=== PATIENT | male | born 1960 | race Caucasian/White ===

== ENCOUNTER 2018-03-16 15:25 | Emergency (ER) | payer OTHER, SELFPAY ==
[2018-03-16 15:25] VITALS: BP 123/83; PULSE 72; RESP 24; TEMP 36.6; O2SAT 95; BMI 29.0
--- NOTE | 2018-03-16 16:20 | ED.DCSUM_ITS ---
- ER Visit Summary Date of Service: 03/16/18 Chief Complaint: [] Left index finger laceration History of Present Illness: The patient is a 57 M [] a metal fire pit the metal slipped and he suffered a injury to the left middle finger distally, no blunt injury rather a slicing injury. No other complaints he is right-hand dominant believes his tetanus made to be up-to-date Physical Examination: [] The left hand there is a 3 cm curvilinear laceration to distal portion of the left index finger, it does involve part of the pad of the finger there is no foreign bodies that are apparent. The IP joint PIP joint and MCP joint fully intact nail is intact he denies any trauma to the bone he does not wish to have an x-ray done there is no signs of foreign body Test Results: [] Emergency Department Course and Treatment: [] Was sterilely prepped irrigated cleansed digital block and then closed with nylon instructed on wound care the need to follow-up in the possible occult injury sutures out in 7-10 days he is referred to Dr. tenisha Hebert for follow-up Treatment Plan: [] Disposition: [] Home stable Impression: [] 3 Centimeter left index finger laceration This note was generated with [employer] dictation software. It may contain incorrect words, spelling, and punctuation that were not noted in review of the chart prior to signing ED Disposition - Plan for ED Patient: Chief Complaint: Laceration Instructions: ED Laceration Hand Referrals: Franco Perez MD [Primary Care Provider] -
--- NOTE | 2018-03-16 17:29 | ED.DEP ---
ED Disposition - Plan for ED Patient: Chief Complaint: Laceration Instructions: ED Laceration Hand Referrals: Franco Perez MD [Primary Care Provider] - Aquilino Rausch MD [STAFF PHYSICIAN] -
[2018-03-16 17:53] VITALS: BP 118/74; PULSE 78; RESP 15; O2SAT 97
== END 2018-03-16 17:58 | disposition home or self-care (01) ==
PROVIDERS: Emergency Provider Emergency Medicine; Family Provider Internal Medicine; PCP Internal Medicine
DX: S61.211A Laceration without foreign body of left index finger without damage to nail, initial encounter (principal); W26.8XXA Contact with other sharp object(s), not elsewhere classified, initial encounter; Y93.9 Activity, unspecified; Y92.9 Unspecified place or not applicable
CPT/HCPCS: 12002; 99284

== ENCOUNTER 2018-11-17 15:27 | Observation (INO) | payer OTHER, SELFPAY ==
[2018-11-17] VITALS (9 sets, daily range): BP systolic 123–132; BP diastolic 73–88; PULSE 52–68; RESP 14–18; TEMP 36.7–36.9; O2SAT 94–97; BMI 30.6; BMI 28.7
--- NOTE | 2018-11-17 15:36 | EKG12_ITS ---
Test Reason : CP Blood Pressure : / mmHG Vent. Rate : 061 BPM Atrial Rate : 061 BPM P-R Int : 156 ms QRS Dur : 086 ms QT Int : 434 ms P-R-T Axes : 045 012 028 degrees QTc Int : 436 ms Normal sinus rhythm Normal ECG Confirmed by MICHELLE RICO MD ([id number]), desk editor KATHIA MAK ([id number]) on 11/21/2018 4:43:07 PM Referred By: STEWART Confirmed By:MICHELLE RICO MD
[2018-11-17] MEDS: Aspirin 81 MG TAB.CHEW 324 MG PO (15:40)
--- NOTE | 2018-11-17 15:40 | RAD_ITS ---
STUDY: X-RAY CHEST REASON FOR EXAM: Male, 58 years old. Chest pain. TECHNIQUE: Single AP portable upright view of the chest. COMPARISON: Portable AP erect chest x-ray July 26, 2014. FINDINGS: Small transverse linear density in the inferolateral left base consistent with focal scarring or subsegmental atelectasis. The lungs are overall clear and more fully expanded today. There is no demonstrated pleural abnormality. Normal size heart. Normal mediastinum and sheri. Normal visualized pulmonary arteries. Normal visualized aortic arch and descending thoracic aorta. There are stable mild degenerative changes of the visualized thoracic spine. 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 There is no demonstrated abnormality of the visualized soft tissue structures of the upper abdomen. RAD/Chest 1 View (Portable) IMPRESSION: Moderate focal scarring in the inferolateral left lung base. No consolidating infiltrate or CHF. Electronically Signed: Jamel Ward MD at 16:30 EST , Service support ,
[2018-11-17 15:47] LABS: Absolute Lymphocyte Count 2.04 X10^3/ul (0.83-4.51); Absolute Neutrophil Count 4.2 X10^3/uL (2.0-7.7); Basophil# 0.01 X10^3/uL; Basophil% 0.1 % (0-1); Eosinophils% 1.4 % (0-5); Hematocrit 43.1 % (40-54); Hemoglobin 14.3 g/dl (13.0-16.5); Lymphocyte # 2.04 X10^3/ul (4.0); Lymphocyte % 28.9 % (19-41); Mean Corp Hgb Conc 33.2 g/gl (32-36); Mean Corpuscular Hgb 29.2 pg (27.0-32.0); Mean Corpuscular Volume 88.1 fL (80-94); Mean Platelet Vol. 11.2 fl (6.2-12.0); Monocyte# 0.71 X10^3/uL; Monocyte% 10.1 % (0-10); Neutrophil # 4.18 X10^3/uL (2.7-7.7); Neutrophil % 59.4 % (47-70); Platelet Count 202 K/mm3 (150-450); RBC Distribution Width CV 13.8 % (11.6-14.6); RBC Distribution Width SD 44.4 fl (35.1-43.9); Red Blood Count 4.89 M/mm3 (4.6-6.2); White Blood Count 7.1 K/mm3 (4.4-11.0)
--- NOTE | 2018-11-17 15:47 | ED.VISSUMM ---
- ER Visit Summary Date of Service: 11/17/18 Chief Complaint: Chest pain History of Present Illness: The patient is a 58 M history of prior TX with CAD and 2 cardiac stents he believes it was replaced in June 2013. Patient states he has had chest pain since last evening. Associated nausea and diaphoresis. Mild dyspnea. This was not associated with exertion today. States the pain is midsternal and goes to his throat and his left shoulder and back. Patient stats at its worse the he was 9 out of 10. Currently is 2 out of 10. No history of DVT or PE. No risk factors. No leg pain or swelling. No pleuritic pain. No hemoptysis. Physical Examination: 58-year-old male no acute distress. Vital signs are stable. Afebrile. Pulse ox 95% lateral extreme no hypoxia. HEENT exam unremarkable. Neck nontender no lymphadenopathy. Lungs clear to auscultation bilaterally. Heart regular rate and rhythm no murmur. Abdomen soft nontender. No pedal bowel sounds no peritoneal signs. Extremities moves all 4. Calves nontender. Equal symmetrical radial pulses. No edema. Dorsi plantar flexion intact. Back and chest are nontender. Neurologically awake alert no focal motor deficits. Test Results: CBC normal. Hemoglobin 14. Chemistries normal. Troponin normal. EKG sinus rhythm rate of 61 no acute signs of TX or ischemia. Chest x-ray chronic scar tissue otherwise unremarkable. Emergency Department Course and Treatment: Cardiac workup. P.o. aspirin. Treatment Plan: Repeat exam patient is doing well at 1740. We went over all his test results. I very spoken to the hospitalist who will admit him to the PCU for further evaluation and workup. Disposition: Admission Impression: Acute chest pain of uncertain etiology History of CAD with 2 cardiac stents and prior TX This note was generated with [employer] dictation software. It may contain incorrect words, spelling, and punctuation that were not noted in review of the chart prior to signing ED Disposition - Plan for ED Patient: Referrals: Franco Perez MD [Primary Care Provider] -
[2018-11-17 15:48] LABS: POSITIVE COUNT NO; POSITIVE DIFFERENTIAL NO; POSITIVE MORPHOLOGY NO
--- NOTE | 2018-11-17 16:00 | ED.DCSUM_ITS ---
- ER Visit Summary Date of Service: 11/17/18 Chief Complaint: Chest pain History of Present Illness: The patient is a 58 M history of prior [place] with CAD and 2 cardiac stents he believes it was replaced in June 2013. Patient states he has had chest pain since last evening. Associated nausea and diaphoresis. Mild dyspnea. This was not associated with exertion today. States the pain is midsternal and goes to his throat and his left shoulder and back. Patient stats at its worse the he was 9 out of 10. Currently is 2 out of 10. No history of DVT or PE. No risk factors. No leg pain or swelling. No pleuritic pain. No hemoptysis. Physical Examination: 58-year-old male no acute distress. Vital signs are stable. Afebrile. Pulse ox 95% lateral extreme no hypoxia. HEENT exam unremarkable. Neck nontender no lymphadenopathy. Lungs clear to auscultation bilaterally. Heart regular rate and rhythm no murmur. Abdomen soft nontender. No pedal bowel sounds no peritoneal signs. Extremities moves all 4. Calves nontender. Equal symmetrical radial pulses. No edema. Dorsi plantar flexion intact. Back and chest are nontender. Neurologically awake alert no focal motor deficits. Test Results: CBC normal. Hemoglobin 14. Chemistries normal. Troponin normal. EKG sinus rhythm rate of 61 no acute signs of WI or ischemia. Chest x-ray chronic scar tissue otherwise unremarkable. Emergency Department Course and Treatment: Cardiac workup. P.o. aspirin. Treatment Plan: Repeat exam patient is doing well at 1740. We went over all his test results. I very spoken to the hospitalist who will admit him to the PCU for further evaluation and workup. Disposition: Admission Impression: Acute chest pain of uncertain etiology History of CAD with 2 cardiac stents and prior [place] This note was generated with [employer] dictation software. It may contain incorrect words, spelling, and punctuation that were not noted in review of the chart p rior to signing ED Disposition - Plan for ED Patient: Referrals: Franco Perez MD [Primary Care Provider] -
[2018-11-17 16:02] LABS: Anion Gap 10 (5-15); BUN 16 mg/dL (7-18); BUN/Creat Ratio 13.6 RATIO (10-20); Chloride 104 mmol/L (98-107); Creatinine, Serum 1.18 mg/dL (0.70-1.30); EST Glomerular Filtration Rate 67 mL/min (>60); Est Glom Filt Rate - Afr Amer 81 mL/min (>60); Estimated Creatinine Clearance 62.24 ml/min; Glucose 95 mg/dL (74-106); Potassium 4.4 mmol/L (3.5-5.1); Sodium Level 142 mmol/L (136-145)
--- NOTE | 2018-11-17 18:18 | HP.PCM_ITS ---
<Ashwin Benavidez - Last Filed: 11/17/18 18:18> Problem List (1) Chest pain Status: Acute (2) CAD (coronary artery disease) Status: Chronic (3) GERD (gastroesophageal reflux disease) Status: Chronic History of Present Illness Date of Admission: 11/17/18 Chief Complaint: chest pain The patient is a 58 year old M with a pmhx of CAD with 2 prior stents, pt of Dr. Zuñiga, also with hx of GERD, who presents to the ER with c/o chest pain. This began last night while sitting. He describes it as a 4/10 midsternal pressure radiating into the left arm and back. He had associated nausea and dizziness. He did not have SOB or diaphoresis. The pain is constant. No aggravating or alleviating factors. In the ER he has a negative EKG, negative trop, and neg ative CXR. He does continue to smoke 1/2 ppd. [] Past Medical History Past Medical History (Chronic Problems): Chronic Problems CAD (coronary artery disease) (Chronic) GERD (gastroesophageal reflux disease) (Chronic) Allergies Sulfa (Sulfonamide Antibiotics) Allergy (Verified 03/16/18 15:27) Unknown Home Medications: Ambulatory Orders Medication Instructions Recorded Atorvastatin Calcium [Lipitor] 80 mg PO QHS 03/16/18 Levothyroxine [Synthroid] 137 mcg PO MOTUWETHFR 03/16/18 Metoprolol Tartrate [Lopressor 25 mg PO BID 03/16/18 (Beta Hayder)] Pantoprazole Sodium [Protonix] 40 mg PO DAILY 03/16/18 Tamsulosin HCl [Flomax] 0.4 mg PO QHS 03/16/18 Zolpidem Tartrate [Ambien] 10 mg PO QHS PRN PRN 03/16/18 buPROPion SR [Wellbutrin SR (150mg 150 mg PO BID 03/16/18 tablets)] Aspirin E.C. [Ecotrin] 325 mg PO DAILY@0800 11/17/18 Cyanocobalamin (Vitamin B-12) 2,000 mcg PO DAILY 11/17/18 [Vitamin B-12] [place]-3 Fatty Acids/Fish Oil [Fish 1,000 mg PO DAILY 11/17/18 Oil 1,000 mg Capsule] Surgical History: cataract, herniorrhaphy Psychiatric History: No pertinent psych hx Lives: Spouse/ Significant Other Smoking Status: Current some day smoker Tobacco Use: Cigarettes Alcohol: None Drugs: None - *Family History Maternal History Items: Diabetes Paternal History Items: Heart Disease Review of Systems Constitutional: Denies: Chills, Fever, Weight Change HEENT: Denies: Head Aches, Sinus Congestion, Sinus Drainage Cardiovascular: Reports: Chest Pain, Chest Pressure, Light Headedness. Denies: Edema, Heaviness, Orthopnea, Palpitations, Paroxysmal Noc. Dyspnea Respiratory: Denies: Cough, Shortness of breath at rest, Sputum production Gastrointestinal: Denies: Abdominal Pain, Nausea, Vomiting Genitourinary: Denies: Dysuria Musculoskeletal: Denies: Joint Pain, Joint Tenderness Skin: Denies: Rash, Wounds Neurological: Denies: Numbness, Tingling, Focal weakness Psychiatric: Denies: Anxiety, Depression, Homicidal Ideations, Suicidal Ideations Hematologic/ Lymphatic: Denies: Easy Bruising, Easy Bleeding VTE Information - Inpt Only VTE Present on Admission: No VTE Mechan Device Prophylaxis: None VTE Pharm Prophylaxis ordered?: Yes Patient Problems: Active and Suspected Problems Chest pain (Acute) - Physical Exam General: Alert, Oriented x3, Cooperative HEENT: Atraumatic, PERRLA, EOMI, Normocephalic Neck: Supple, No JVD, Negative Carotid Bruits Lungs: Clear to auscultation, Normal air movement Cardiovascular: Regular rate, No murmurs Abdomen: Bowel Sounds Present, Soft, Non Tender Extremities: No edema, Capillary Refill Less than 3 Seconds Skin: No rashes, No breakdown Musculoskeletal: No Tenderness to Palpation of Joints or Extremities Neurological: Cranial nerves II-XII grossly intact Psych/Mental Status: Normal Affect, Appropriate Vital Signs Temp Pulse Resp BP Pulse Ox 98.1 F 57 L 16 130/75 H 94 11/17/18 15:28 11/17/18 16:28 11/17/18 16:28 11/17/18 16:28 11/17/18 16:28 Oxygen Delivery Method Room Air Weight: 195 lb 8.8 oz Body Mass Index (BMI) 30.6 Laboratory Tests Past 24 Hrs 11/17/18 11/17/18 15:35 15:35 WBC 7.1 RBC 4.89 Hgb 14.3 Hct 43.1 MCV 88.1 MCH 29.2 MCHC 33.2 RDW 13.8 RDW Differential 44.4 H Plt Count 202 MPV 11.2 Immature Gran % (Auto) 0.100 Neut % (Auto) 59.4 Lymph % (Auto) 28.9 [place] % (Auto) 10.1 H Eos % (Auto) 1.4 Baso % (Auto) 0.1 Absolute Neuts (auto) 4.2 Absolute Lymphs (auto) 2.04 Total Counted Not Reportable Sodium 142 Potassium 4.4 Chloride 104 Carbon Dioxide 28.0 Anion Gap 10 BUN 16 Creatinine 1.18 Estim Creat Clear Calc 62.24 Est GFR (MDRD) Af Amer 81 Est GFR (MDRD) Non-Af 67 BUN/Creatinine Ratio 13.6 Glucose 95 Calcium 9.0 Troponin I < 0.015 Assessment/Plan All Active Problems Chest pain (Acute) 1. Chest pain - hx CAD with 2 prior stents. Still smokes 1/2 ppd. Negative EKG, negative trop, neg CXR. Admit to PCU on tele. Cycle enzymes, repeat AM EKG, Stress test in AM. Last stress negative 2 years ago. On asa/statin/beta hayder. 2. GERD - ppi 3. Depression - continue home meds 4. BPH - flomax 5. Hypothyroidism - synthroid. DVT ppx: lovenox This patient was seen by Ashwin Benavidez PA-C under the supervision of Dr. Masterson. <Hood Masterson F - Last Filed: 11/17/18 19:34> History of Present Illness The patient is a 58 year old M [] Past Medical History Allergies Sulfa (Sulfonamide Antibiotics) Allergy (Verified 03/16/18 15:27) Unknown - Physical Exam Vital Signs Temp Pulse Resp BP Pulse Ox 98.1 F 60 14 123/88 H 94 11/17/18 18:53 11/17/18 18:53 11/17/18 18:53 11/17/18 18:53 11/17/18 18:53 Oxygen Delivery Method Room Air Weight: 183 lb 6.793 oz Body Mass Index (BMI) 28.7 Laboratory Tests Past 24 Hrs 11/17/18 11/17/18 11/17/18 15:35 15:35 18:53 WBC 7.1 RBC 4.89 Hgb 14.3 Hct 43.1 MCV 88.1 MCH 29.2 MCHC 33.2 RDW 13.8 RDW Differential 44.4 H Plt Count 202 MPV 11.2 Immature Gran % (Auto) 0.100 Neut % (Auto) 59.4 Lymph % (Auto) 28.9 Sunflower % (Auto) 10.1 H Eos % (Auto) 1.4 Baso % (Auto) 0.1 Absolute Neuts (auto) 4.2 Absolute Lymphs (auto) 2.04 Total Counted Not Reportable Sodium 142 Potassium 4.4 Chloride 104 Carbon Dioxide 28.0 Anion Gap 10 BUN 16 Creatinine 1.18 Estim Creat Clear Calc 62.24 Est GFR (MDRD) Af Amer 81 Est GFR (MDRD) Non-Af 67 BUN/Creatinine Ratio 13.6 Glucose 95 Calcium 9.0 Troponin I < 0.015 Pending Code Visit Addendum: Dr. Masetrson I personally examined the patient and reviewed the chart. I agree with the above. 58-year-old male with a history of current tobacco use as well as a history of coronary artery disease status post stents x2 on aspirin and Lipitor, presenting with chest pain that started yesterday evening. In the ER he had a normal troponin and a normal EKG. He states that initially the pain was going down his arm however that has resolved though he continues to have mild chest pressure. He did have a stress test 2 years ago which was negative therefore will obtain serial troponins as well as a stress test in the morning. He cannot do a treadmill stress test because he has right knee pain. OBSV E&M: [id number] Initial observation care L3
--- NOTE | 2018-11-17 19:20 | EKG12_ITS ---
Test Reason : CP ADMISSION Blood Pressure : / mmHG Vent. Rate : 054 BPM Atrial Rate : 054 BPM P-R Int : 172 ms QRS Dur : 092 ms QT Int : 456 ms P-R-T Axes : 049 019 038 degrees QTc Int : 432 ms Sinus bradycardia Otherwise normal ECG Confirmed by NATIVIDAD KING, DEDRA ([id number]), fan mail editor KATHIA MAK ([id number]) on 11/22/2018 10:57:34 AM Referred By: CARLOS Confirmed By:DEDRA HENSON MD
[2018-11-17] MEDS: Atorvastatin Calcium 80 MG Tablet PO (21:20)
[2018-11-17] MEDS: Metoprolol Tartrate 25 MG Tablet PO (21:20)
[2018-11-17] MEDS: Tamsulosin HCl 0.4 MG Capsule PO (21:20)
[2018-11-17] MEDS: buPROPion (SR) 150 MG Tablet.SA PO (21:20)
[2018-11-18] VITALS (12 sets, daily range): BP systolic 101–116; BP diastolic 64–76; PULSE 53–69; RESP 16–18; TEMP 36.2–36.6; O2SAT 92–97
--- NOTE | 2018-11-18 05:55 | EKG12_ITS ---
Test Reason : AM EKG Blood Pressure : / mmHG Vent. Rate : 062 BPM Atrial Rate : 062 BPM P-R Int : 180 ms QRS Dur : 082 ms QT Int : 430 ms P-R-T Axes : 048 026 047 degrees QTc Int : 436 ms Normal sinus rhythm Normal ECG Confirmed by NATIVIDAD KING, DEDRA ([id number]), assistant film editor KATHIA MAK ([id number]) on 11/22/2018 10:56:27 AM Referred By: CARLOS Confirmed By:DEDRA HENSON MD
[2018-11-18] MEDS: 0.9% NaCl Peripheral Flush Adult/Peds IV (06:31)
[2018-11-18] MEDS: Aspirin E.C. 325 MG Tablet PO (06:31)
[2018-11-18 07:02] LABS: Absolute Lymphocyte Count 2.09 X10^3/ul (0.83-4.51); Absolute Neutrophil Count 4.4 X10^3/uL (2.0-7.7); Basophil# 0.03 X10^3/uL; Basophil% 0.4 % (0-1); Eosinophil# 0.16 X10^3/uL; Eosinophils% 2.2 % (0-5); Hematocrit 43.2 % (40-54); Hemoglobin 14.2 g/dl (13.0-16.5); Lymphocyte # 2.09 X10^3/ul (4.0); Lymphocyte % 28.2 % (19-41); Mean Corp Hgb Conc 32.9 g/gl (32-36); Mean Corpuscular Hgb 29.2 pg (27.0-32.0); Mean Corpuscular Volume 88.9 fL (80-94); Mean Platelet Vol. 11.3 fl (6.2-12.0); Monocyte# 0.76 X10^3/uL; Monocyte% 10.3 % (0-10); Neutrophil # 4.36 X10^3/uL (2.7-7.7); Neutrophil % 58.8 % (47-70); Platelet Count 201 K/mm3 (150-450); RBC Distribution Width CV 13.7 % (11.6-14.6); RBC Distribution Width SD 44.2 fl (35.1-43.9); Red Blood Count 4.86 M/mm3 (4.6-6.2); White Blood Count 7.4 K/mm3 (4.4-11.0)
[2018-11-18 07:04] LABS: POSITIVE COUNT NO; POSITIVE DIFFERENTIAL NO; POSITIVE MORPHOLOGY NO
[2018-11-18 07:08] LABS: Prothrombin Time (Protime)PT. 12.9 SECONDS (11.7-14.9)
[2018-11-18 07:09] LABS: Partial Thromboplast Time 27.5 Seconds (24.1-36.2)
[2018-11-18 07:17] LABS: Anion Gap 7 (5-15); BUN 22 mg/dL (7-18); BUN/Creat Ratio 20.4 RATIO (10-20); Calcium,Total 8.7 mg/dL (8.5-10.1); Chloride 107 mmol/L (98-107); Creatinine, Serum 1.08 mg/dL (0.70-1.30); EST Glomerular Filtration Rate 74 mL/min (>60); Est Glom Filt Rate - Afr Amer 90 mL/min (>60); Glucose 91 mg/dL (74-106); Potassium 4.3 mmol/L (3.5-5.1); Sodium Level 143 mmol/L (136-145)
--- NOTE | 2018-11-18 11:58 | DCINST_ITS ---
- Discharge Diagnoses Current Active Problems: Current Active and Chronic Problems Chest pain (Acute) CAD (coronary artery disease) (Chronic) GERD (gastroesophageal reflux disease) (Chronic) You will use the following diet at home:: No restrictions Your food should be the consistency of: Regular Your liquids should be the consistency of: Regular/Thin Discharge Activity: Return to Normal Activity Weight Bearing Status: Full weight bearing Allergies/Adverse Reactions: Allergies Sulfa (Sulfonamide Antibiotics) Allergy (Verified 03/16/18 15:27) Unknown Medications to take at Discharge Atorvastatin Calcium [Lipitor] 80 mg PO QHS 03/16/18 Levothyroxine [Synthroid] 137 mcg PO MOTUWETHFR 03/16/18 Metoprolol Tartrate [Lopressor (beta hayder)] 25 mg PO BID 03/16/18 Pantoprazole Sodium [Protonix] 40 mg PO DAILY 03/16/18 Tamsulosin HCl [Flomax] 0.4 mg PO QHS 03/16/18 Zolpidem Tartrate [Ambien] 10 mg PO QHS PRN PRN 03/16/18 buPROPion SR [Wellbutrin SR (150mg tablets)] 150 mg PO BID 03/16/18 Aspirin E.C. [Ecotrin] 325 mg PO DAILY@0800 11/17/18 Cyanocobalamin (Vitamin B-12) [Vitamin B-12] 2,000 mcg PO DAILY 11/17/18 [place]-3 Fatty Acids/Fish Oil [Fish Oil 1,000 mg Capsule] 1,000 mg PO DAILY 11/17/18 Primary Care Physician: Franco Perez MD [Primary Care Provider] - Please follow up with your Primary Care Physician in: in 3 weeks Test Results: Test results from this visit will be discussed in further detail at your follow- up appointment, if applicable. Please Follow Up With: Brady Zuñiga MD When: in 2 weeks
[2018-11-18] MEDS: buPROPion (SR) 150 MG Tablet.SA PO ×2 (12:07→22:45)
[2018-11-18] MEDS: Pantoprazole Sodium 40 MG Tablet PO (12:07)
[2018-11-18] MEDS: Metoprolol Tartrate 25 MG Tablet PO ×2 (12:07→22:45)
--- NOTE | 2018-11-18 13:14 | STRESSREP ---
Stress Test Report Date: 11-18-2018 Procedure: Pharmacologic stress nuclear imaging study Indications: Chest pain; CAD; status post PCI Consent: Per the patient Procedure: The patient underwent pharmacologic (Regadenoson) evaluation with a peak heart rate of 105 beats per minute (65% predicted maximal heart rate) and a peak blood pressure of 112/62 mmHg. The baseline ECG demonstrated Sinus bradycardia . The peak pharmacologic ECG demonstrated a nonspecific T-wave abnormality with spontaneous resolution to baseline . There were no cardiac dysrhythmias pretest, during pharmacologic infusion, or recovery. The patient noted chest/neck discomfort during pharmacologic infusion with spontaneous resolution to baseline in recovery . The examination was discontinued secondary to completion of protocol. Impression: 1. Pharmacologic (Regadenoson) evaluation 2. Peak pharmacologic ECG with a nonspecific T-wave abnormality with spontaneous resolution to baseline 3. There were no cardiac dysrhythmias pretest, during pharmacologic infusion, or recovery. 4. Nuclear images pending Myocardial perfusion imaging study: Technique: The patient was injected with 12.0 millicuries of technetium 99m Cardiolite and subsequently rest SPECT Cardiolite nuclear imaging was obtained in the horizontal long, vertical long, and short axis views. The patient underwent pharmacologic (Regadenoson) evaluation with a peak heart rate of 105 beats per minute (65 % percent predicted maximal heart rate) and a peak blood pressure of 112/62 mmHg. The patient was injected with 36.0 millicuries of technetium 99m Cardiolite and subsequently stress SPECT Cardiolite nuclear imaging was obtained in the horizontal long, vertical long, and short axis views. A gated Cardiolite study at peak stress was obtained. Interpretation: Rest and stress SPECT Cardiolite nuclear imaging status post realignment, normalization, and attenuation correction demonstrate Relative uniform tracer uptake at rest. Status post stress there is notation of subtle diminished tracer uptake in portions of the distal anterior and anteroapical segments. . There is end systolic thickening and brightening. The gated Cardiolite study demonstrates myocardial thickening and inward wall motion. The reported LVEF is 62 %. Impression: 1. Rest and stress expect Cardiolite nuclear imaging demonstrate myocardial perfusion changes concerning for an area of stress induced myocardial ischemia in portions of the distal anteroseptum anterior apical segments, however, an element of shifting soft tissue attenuation/artifact cannot necessarily be excluded . 2. The gated Cardiolite study reports an LVEF of 62 %. This note was generated with Dragon dictation software. It may contain incorrect words, spelling, and punctuation that were not noted in checking the note before signing.
--- NOTE | 2018-11-18 14:19 | PCM.PROGNOTE ---
Patient Problems: Active and Suspected Problems Chest pain (Acute) Subjective: Ongoing chest pain. 2/10 at rest, 4/10 during stress test. Described as ongoing pressure radiating into back neck and left axillae. - Physical Exam General: Alert, Oriented x3, Cooperative HEENT: Atraumatic, PERRLA, EOMI, Normocephalic Neck: Supple, No JVD, Negative Carotid Bruits Lungs: Clear to auscultation, Normal air movement Cardiovascular: Regular rate, No murmurs Abdomen: Bowel Sounds Present, Soft, Non Tender Extremities: No edema, Capillary Refill Less than 3 Seconds Skin: No rashes, No breakdown Musculoskeletal: No Tenderness to Palpation of Joints or Extremities Neurological: Cranial nerves II-XII grossly intact Psych/Mental Status: Normal Affect, Appropriate Vital Signs Temp Pulse Resp BP Pulse Ox 97.7 F L 62 16 112/65 97 11/18/18 11:44 11/18/18 12:07 11/18/18 11:44 11/18/18 11:44 11/18/18 11:44 Oxygen Flow Rate (L/min) 2 Oxygen Delivery Method Room Air Weight: 183 lb 6.793 oz Body Mass Index (BMI) 28.7 Intake and Output for Last 24 Hours 11/16/18 11/17/18 11/18/18 23:59 23:59 23:59 Intake Total 300 / 300 240 / 240 Balance 300 / 300 240 / 240 Laboratory Tests Past 24 Hrs 11/17/18 11/17/18 11/17/18 15:35 15:35 18:53 WBC 7.1 RBC 4.89 Hgb 14.3 Hct 43.1 MCV 88.1 MCH 29.2 MCHC 33.2 RDW 13.8 RDW Differential 44.4 H Plt Count 202 MPV 11.2 Immature Gran % (Auto) 0.100 Neut % (Auto) 59.4 Lymph % (Auto) 28.9 [place] % (Auto) 10.1 H Eos % (Auto) 1.4 Baso % (Auto) 0.1 Absolute Neuts (auto) 4.2 Absolute Lymphs (auto) 2.04 Total Counted Not Reportable PT INR APTT Sodium 142 Potassium 4.4 Chloride 104 Carbon Dioxide 28.0 Anion Gap 10 BUN 16 Creatinine 1.18 Estim Creat Clear Calc 62.24 Est GFR (MDRD) Af Amer 81 Est GFR (MDRD) Non-Af 67 BUN/Creatinine Ratio 13.6 Glucose 95 Calcium 9.0 Troponin I < 0.015 < 0.015 11/17/18 11/18/18 11/18/18 21:12 05:46 05:46 WBC 7.4 RBC 4.86 Hgb 14.2 Hct 43.2 MCV 88.9 MCH 29.2 MCHC 32.9 RDW 13.7 RDW Differential 44.2 H Plt Count 201 MPV 11.3 Immature Gran % (Auto) 0.100 Neut % (Auto) 58.8 Lymph % (Auto) 28.2 [place] % (Auto) 10.3 H Eos % (Auto) 2.2 Baso % (Auto) 0.4 Absolute Neuts (auto) 4.4 Absolute Lymphs (auto) 2.09 Total Counted Not Reportable PT INR APTT Sodium 143 Potassium 4.3 Chloride 107 Carbon Dioxide 29.0 Anion Gap 7 BUN 22 H Creatinine 1.08 Estim Creat Clear Calc 68.00 Est GFR (MDRD) Af Amer 90 Est GFR (MDRD) Non-Af 74 BUN/Creatinine Ratio 20.4 H Glucose 91 Calcium 8.7 Troponin I < 0.015 11/18/18 05:46 WBC RBC Hgb Hct MCV MCH MCHC RDW RDW Differential Plt Count MPV Immature Gran % (Auto) Neut % (Auto) Lymph % (Auto) [place] % (Auto) Eos % (Auto) Baso % (Auto) Absolute Neuts (auto) Absolute Lymphs (auto) Total Counted PT 12.9 INR 1.0 APTT 27.5 Sodium Potassium Chloride Carbon Dioxide Anion Gap BUN Creatinine Estim Creat Clear Calc Est GFR (MDRD) Af Amer Est GFR (MDRD) Non-Af BUN/Creatinine Ratio Glucose Calcium Troponin I Medical Necessity - Tobacco Use Smoking Status: Current some day smoker Tobacco Use: Cigarettes Assessment/Plan All Active Problems Chest pain (Acute) 1. Chest pain - hx CAD with 2 prior stents. Still smokes 1/2 ppd. tele ok, EKG unchanged, trop neg. Stress test was abnormal. Will stay here for possible heart cath on tuesday. Start plavix Consult [place] Lovenox BID prn nitro, morphine. on beta hayder BP well controlled. 2. GERD - ppi 3. Depression - continue home meds 4. BPH - flomax 5. Hypothyroidism - synthroid. 6. Nicotine abuse - patch if desired. DVT ppx: therapeutic lovenox. This patient was seen by Ashwin Benavidez PA-C under the supervision of Dr. Cordero.
[2018-11-18] MEDS: Enoxaparin 40 MG/0.4 ML Syringe SC (14:23)
--- NOTE | 2018-11-18 16:15 | PCM.CONS.C ---
Problem List (1) Chest pain Status: Acute (2) CAD (coronary artery disease) Status: Chronic Qualifiers: Coronary Disease-Associated Artery/Lesion type: [place] artery (3) S/P PTCA (percutaneous transluminal coronary angioplasty) Status: Chronic (4) Abnormal stress test Status: Acute (5) GERD (gastroesophageal reflux disease) Status: Chronic Reason for Consult Date of Consultation: 11/18/18 History of Present Illness: The patient is a 58 year old White male who was referred for evaluation of chest discomfort, a history of CAD status post PCI, and an abnormal stress test superimposed upon history of GERD. He states that several years ago he was evaluated for concerns of chest discomfort, was found to have a heart attack , was transferred to [facility] where he underwent diagnostic cardiac catheterization and received PCI. He does not recall the details. However he states he presented on a Tuesday and was back to work the following Tuesday. He states since that time has been followed by [facility] locally. He states he has had to outpatient stress tests at their facility which were reportedly negative. He notes that recently he has been having recurrent chest discomfort and neck discomfort left upper extremity discomfort as well as a sensation of nausea. He has been concerned as to some of the symptoms are similar to some of the symptoms he may of hand during his original event. 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 He states he was told at that time that he appears pale and diaphoretic. He was referred to the emergency department for further evaluation. He was evaluated and placed in the hospital for further evaluation and care. He states overall he is felt better. He has undergone cardiac enzymes which were negative. He has had ECGs which demonstrated sinus rhythm with no acute changes. He underwent a pharmacologic stress nuclear imaging study earlier this day which demonstrated at infusion nonspecific T-wave changes and with respect to his myocardial perfusion images subtle diminished myocardial perfusion/tracer uptake in portions of his distal anterior and anteroapical segments. This raises concerns or findings compatible of stress induced myocardial ischemia. He denies any ongoing orthopnea or PND or peripheral pitting edema. He states he has had no near syncope or syncope. He states that his discomfort/symptoms have waxed and waned. He believes they are separate from his GERD. However he does remember that with his original event he also had a burning sensation in his chest. 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 [] Past Medical History Allergies/Adverse Reactions: Allergies Sulfa (Sulfonamide Antibiotics) Allergy (Verified 03/16/18 15:27) Unknown Home Medications: Ambulatory Orders Medication Instructions Recorded Atorvastatin Calcium [Lipitor] 80 mg PO QHS 03/16/18 Levothyroxine [Synthroid] 137 mcg PO MOTUWETHFR 03/16/18 Metoprolol Tartrate [Lopressor 25 mg PO BID 03/16/18 (beta hayder)] Pantoprazole Sodium [Protonix] 40 mg PO DAILY 03/16/18 Tamsulosin HCl [Flomax] 0.4 mg PO QHS 03/16/18 Zolpidem Tartrate [Ambien] 10 mg PO QHS PRN PRN 03/16/18 buPROPion SR [Wellbutrin SR (150mg 150 mg PO BID 03/16/18 tablets)] Aspirin E.C. [Ecotrin] 325 mg PO DAILY@0800 11/17/18 Cyanocobalamin (Vitamin B-12) 2,000 mcg PO DAILY 11/17/18 [Vitamin B-12] [place]-3 Fatty Acids/Fish Oil [Fish 1,000 mg PO DAILY 11/17/18 Oil 1,000 mg Capsule] Past Medical History (Chronic Problems): Chronic Problems CAD (coronary artery disease) (Chronic) GERD (gastroesophageal reflux disease) (Chronic) S/P PTCA (percutaneous transluminal coronary angioplasty) (Chronic) Surgical History: cataract, herniorrhaphy Psychiatric History: No pertinent psych hx - *Family History Maternal History Items: Diabetes Paternal History Items: Heart Disease Lives: Spouse/ Significant Other Smoking Status: Current some day smoker Tobacco Use: Cigarettes Alcohol: None Drugs: None Review of Systems - Review of Systems General: Denies: Fever, Night Sweats, Fatigue Cardiovascular: Reports: Chest Discomfort, Shortness of Breath. Denies: Orthopnea, PND, Peripheral Edema, Palpitations, Lightheadedness, Dizziness, Near Syncope, Syncope Respiratory: Reports: Shortness of Breath. Denies: Cough, Sputum Production, Hemoptysis Gastrointestinal: Reports: Nausea. Denies: Hematemesis, Hematochezia, Melena Genitourinary: Denies: Dysuria, Hematuria Skin: Denies: Rash Subjectve: This is a 58-year-old white male who appears to be resting comfortably at the moment in no acute distress. Objective: Vital Signs Temp Pulse Resp BP Pulse Ox 97.7 F L 60 16 112/65 97 11/18/18 11:44 11/18/18 14:50 11/18/18 11:44 11/18/18 11:44 11/18/18 11:44 Oxygen Flow Rate (L/min) 2 Oxygen Delivery Method Room Air Weight: 183 lb 6.793 oz Body Mass Index (BMI) 28.7 Intake and Output for Last 24 Hours 11/16/18 11/17/18 11/18/18 23:59 23:59 23:59 Intake Total 300 / 300 240 / 240 Balance 300 / 300 240 / 240 General: Awake, Alert, Oriented x 3, Cooperative, No Acute Distress HEENT: Atraumatic, Normocephalic, PERRL, EOMI, Sclera Non Icteric Oral: Moist Mucosa Neck: Supple, Good ROM, No JVD Lungs: Inspiratory Wheezes - Rachid Cardiovascular: Regular Rhythm, Normal S1, Normal S2 Vascular: No Carotid Bruits Abdomen: Bowel Sounds Present, Soft, Non Tender Extremities: No Cyanosis, No Clubbing, No edema Neurological: No Focal Motor or Sensory Deficit Psych/Mental Status: Appropriate 11/17/18 18:53: Troponin I < 0.015 11/17/18 21:12: Troponin I < 0.015 11/18/18 05:46: WBC 7.4, RBC 4.86, Hgb 14.2, Hct 43.2, MCV 88.9, MCH 29.2, MCHC 32.9, RDW 13.7, RDW Differential 44.2 H, Plt Count 201, MPV 11.3, Immature Gran % (Auto) 0.100, Neut % (Auto) 58.8, Lymph % (Auto) 28.2, [place] % (Auto) 10.3 H, Eos % (Auto) 2.2, Baso % (Auto) 0.4, Absolute Neuts (auto) 4.4, Total Counted Not Reportable 11/18/18 05:46: Sodium 143, Potassium 4.3, Chloride 107, Carbon Dioxide 29.0, Anion Gap 7, BUN 22 H, Creatinine 1.08, Est GFR (MDRD) Af Amer 90, Est GFR (MDRD) Non-Af 74, BUN/Creatinine Ratio 20.4 H, Glucose 91, Calcium 8.7 11/18/18 05:46: PT 12.9, INR 1.0, APTT 27.5 Rhythm:Sinus rhythm EKG:Normal sinus rhythm Stress Test:As noted above; please see official report Cardiac Cath:Unavailable for review PCI:Unavailable for review CXR:Preliminary evaluation: No acute cardiopulmonary disease process appreciated; please see official report Assessment/Plan 1. Chest pain The patient has symptoms some of which were concerning for angina pectoris. His symptoms do not appear to be classic for other etiologies, at this time, such as acute pericarditis, etc. He has undergone noninvasive evaluation with the findings as noted above. At the present time he will continue to be monitored. He will continue medical management with optimization as best as possible for the possibility of underlying CAD and myocardial ischemia. It has been recommended he be considered for reevaluation with diagnostic cardiac catheterization. The procedure and risks were discussed with him. He is agreeable to this approach. 2. CAD status post PCI The details of the patient's history with respect to his CAD/PCI event are unknown period a copy of his medical records from [facility] will be requested for continuity of care purposes. In the interim he will continue to be followed. He will continue medical adjustment. He will proceed with further evaluation as noted above. 3. Abnormal stress test The patient does have an abnormal stress test. Again this raises concern about the possibility of progression of CAD and myocardial ischemia. Thus she will undergo I will care as described above. 4. GERD He does have a history of GERD. He will continue evaluation care per internal medicine. The above was discussed her and view with the patient and Dr. Cordero. This note was generated using a voice recognition system and there may be incorrect words, spelling or punctuation that were not noted when reviewing the office note prior to saving.
[2018-11-18] MEDS: Clopidogrel Bisulfate 300 MG Tablet PO (16:16)
--- NOTE | 2018-11-18 16:19 | CON.PCM_ITS ---
Problem List (1) Chest pain Status: Acute (2) CAD (coronary artery disease) Status: Chronic Qualifiers: Coronary Disease-Associated Artery/Lesion type: [place] artery (3) S/P PTCA (percutaneous transluminal coronary angioplasty) Status: Chronic (4) Abnormal stress test Status: Acute (5) GERD (gastroesophageal reflux disease) Status: Chronic Reason for Consult Date of Consultation: 11/18/18 History of Present Illness: The patient is a 58 year old White male who was referred for evaluation of chest discomfort, a history of CAD status post PCI, and an abnormal stress test superimposed upon history of GERD. He states that several years ago he was evaluated for concerns of chest discomfort, was found to have a heart attack , was transferred to [facility] where he underwent diagnostic cardiac catheterization and received PCI. He does not recall the details. However he states he presented on a Tuesday and was back to work the following Tuesday. He states since that time has been followed by [facility] locally. He states he has had to outpatient stress tests at their facility which were reportedly negative. He notes that recently he has been having recurrent chest discomfort and neck discomfort left upper extremity discomfort as well as a sensation of nausea. He has been concerned as to some of the symptoms are similar to some of the symptoms he may of hand during his original event. 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 He states he was told at that time that he appears pale and diaphoretic. He was referred to the emergency department for further evaluation. He was evaluated and placed in the hospital for further evaluation and care. He states overall he is felt better. He has undergone cardiac enzymes which were negative. He has had ECGs which demonstrated sinus rhythm with no acute changes. He underwent a pharmacologic stress nuclear imaging study earlier this day which demonstrated at infusion nonspecific T-wave changes and with respect to his myocardial perfusion images subtle diminished myocardial perfusion/tracer uptake in portions of his distal anterior and anteroapical segments. This raises concerns or findings compatible of stress induced myocardial ischemia. He denies any ongoing orthopnea or PND or peripheral pitting edema. He states he has had no near syncope or syncope. He states that his discomfort/symptoms have waxed and waned. He believes they are separate from his GERD. However he does remember that with his original event he also had a burning sensation in his chest. 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 [] Past Medical History Allergies/Adverse Reactions: Allergies Sulfa (Sulfonamide Antibiotics) Allergy (Verified 03/16/18 15:27) Unknown Home Medications: Ambulatory Orders Medication Instructions Recorded Atorvastatin Calcium [Lipitor] 80 mg PO QHS 03/16/18 Levothyroxine [Synthroid] 137 mcg PO MOTUWETHFR 03/16/18 Metoprolol Tartrate [Lopressor 25 mg PO BID 03/16/18 (beta hayder)] Pantoprazole Sodium [Protonix] 40 mg PO DAILY 03/16/18 Tamsulosin HCl [Flomax] 0.4 mg PO QHS 03/16/18 Zolpidem Tartrate [Ambien] 10 mg PO QHS PRN PRN 03/16/18 buPROPion SR [Wellbutrin SR (150mg 150 mg PO BID 03/16/18 tablets)] Aspirin E.C. [Ecotrin] 325 mg PO DAILY@0800 11/17/18 Cyanocobalamin (Vitamin B-12) 2,000 mcg PO DAILY 11/17/18 [Vitamin B-12] [place]-3 Fatty Acids/Fish Oil [Fish 1,000 mg PO DAILY 11/17/18 Oil 1,000 mg Capsule] Past Medical History (Chronic Problems): Chronic Problems CAD (coronary artery disease) (Chronic) GERD (gastroesophageal reflux disease) (Chronic) S/P PTCA (percutaneous transluminal coronary angioplasty) (Chronic) Surgical History: cataract, herniorrhaphy Psychiatric History: No pertinent psych hx - *Family History Maternal History Items: Diabetes Paternal History Items: Heart Disease Lives: Spouse/ Significant Other Smoking Status: Current some day smoker Tobacco Use: Cigarettes Alcohol: None Drugs: None Review of Systems - Review of Systems General: Denies: Fever, Night Sweats, Fatigue Cardiovascular: Reports: Chest Discomfort, Shortness of Breath. Denies: Orthopnea, PND, Peripheral Edema, Palpitations, Lightheadedness, Dizziness, Near Syncope, Syncope Respiratory: Reports: Shortness of Breath. Denies: Cough, Sputum Production, Hemoptysis Gastrointestinal: Reports: Nausea. Denies: Hematemesis, Hematochezia, Melena Genitourinary: Denies: Dysuria, Hematuria Skin: Denies: Rash Subjectve: This is a 58-year-old white male who appears to be resting comfortably at the moment in no acute distress. Objective: Vital Signs Temp Pulse Resp BP Pulse Ox 97.7 F L 60 16 112/65 97 11/18/18 11:44 11/18/18 14:50 11/18/18 11:44 11/18/18 11:44 11/18/18 11:44 Oxygen Flow Rate (L/min) 2 Oxygen Delivery Method Room Air Weight: 183 lb 6.793 oz Body Mass Index (BMI) 28.7 Intake and Output for Last 24 Hours 11/16/18 11/17/18 11/18/18 23:59 23:59 23:59 Intake Total 300 / 300 240 / 240 Balance 300 / 300 240 / 240 General: Awake, Alert, Oriented x 3, Cooperative, No Acute Distress HEENT: Atraumatic, Normocephalic, PERRL, EOMI, Sclera Non Icteric Oral: Moist Mucosa Neck: Supple, Good ROM, No JVD Lungs: Inspiratory Wheezes - Rachid Cardiovascular: Regular Rhythm, Normal S1, Normal S2 Vascular: No Carotid Bruits Abdomen: Bowel Sounds Present, Soft, Non Tender Extremities: No Cyanosis, No Clubbing, No edema Neurological: No Focal Motor or Sensory Deficit Psych/Mental Status: Appropriate 11/17/18 18:53: Troponin I < 0.015 11/17/18 21:12: Troponin I < 0.015 11/18/18 05:46: WBC 7.4, RBC 4.86, Hgb 14.2, Hct 43.2, MCV 88.9, MCH 29.2, MCHC 32.9, RDW 13.7, RDW Differential 44.2 H, Plt Count 201, MPV 11.3, Immature Gran % (Auto) 0.100, Neut % (Auto) 58.8, Lymph % (Auto) 28.2, [place] % (Auto) 10.3 H, Eos % (Auto) 2.2, Baso % (Auto) 0.4, Absolute Neuts (auto) 4.4, Total Counted Not Reportable 11/18/18 05:46: Sodium 143, Potassium 4.3, Chloride 107, Carbon Dioxide 29.0, Anion Gap 7, BUN 22 H, Creatinine 1.08, Est GFR (MDRD) Af Amer 90, Est GFR (MDRD) Non-Af 74, BUN/Creatinine Ratio 20.4 H, Glucose 91, Calcium 8.7 11/18/18 05:46: PT 12.9, INR 1.0, APTT 27.5 Rhythm:Sinus rhythm EKG:Normal sinus rhythm Stress Test:As noted above; please see official report Cardiac Cath:Unavailable for review PCI:Unavailable for review CXR:Preliminary evaluation: No acute cardiopulmonary disease process appreciated; please see official report Assessment/Plan 1. Chest pain The patient has symptoms some of which were concerning for angina pectoris. His symptoms do not appear to be classic for other etiologies, at this time, such as acute pericarditis, etc. He has undergone noninvasive evaluation with the findings as noted above. At the present time he will continue to be monitored. He will continue medical management with optimization as best as possible for the possibility of underlying CAD and myocardial ischemia. It has been recommended he be considered for reevaluation with diagnostic cardiac catheterization. The procedure and risks were discussed with him. He is agreeable to this approach. 2. CAD status post PCI The details of the patient's history with respect to his CAD/PCI event are unknown period a copy of his medical records from [facility] will be requested for continuity of care purposes. In the interim he will continue to be followed. He will continue medical adjustment. He will proceed with further evaluation as noted above. 3. Abnormal stress test The patient does have an abnormal stress test. Again this raises concern about the possibility of progression of CAD and myocardial ischemia. Thus she will undergo I will care as described above. 4. GERD He does have a history of GERD. He will continue evaluation care per internal medicine. The above was discussed her and view with the patient and Dr. Cordero. This note was generated using a voice recognition system and there may be incorrect words, spelling or punctuation that were not noted when reviewing the office note prior to saving.
--- NOTE | 2018-11-18 16:33 | CM.UR ---
Heart cath planned for Tuesday. Patient has [facility] and in-network facilities include (but not limited to): [facility] For any questions, contact case mgmt at [phone]. Aden Cohen RN, CCM.
[2018-11-18] MEDS: Enoxaparin 80 MG/0.8 ML Syringe SC (17:51)
[2018-11-18] MEDS: Tamsulosin HCl 0.4 MG Capsule PO (22:45)
[2018-11-18] MEDS: Atorvastatin Calcium 80 MG Tablet PO (22:45)
[2018-11-19] VITALS (13 sets, daily range): BP systolic 99–116; BP diastolic 55–73; PULSE 55–64; RESP 16–18; TEMP 36.4–36.7; O2SAT 93–96
[2018-11-19] MEDS: Enoxaparin 80 MG/0.8 ML Syringe SC ×2 (05:31→17:24)
[2018-11-19 06:53] LABS: Anion Gap 12 (5-15); BUN 20 mg/dL (7-18); Calcium,Total 8.8 mg/dL (8.5-10.1); Chloride 105 mmol/L (98-107); EST Glomerular Filtration Rate 81 mL/min (>60); Est Glom Filt Rate - Afr Amer 98 mL/min (>60); Estimated Creatinine Clearance 73.44 ml/min; Glucose 102 mg/dL (74-106); Sodium Level 141 mmol/L (136-145)
[2018-11-19] MEDS: buPROPion (SR) 150 MG Tablet.SA PO ×2 (08:47→21:23)
[2018-11-19] MEDS: Metoprolol Tartrate 25 MG Tablet PO ×2 (08:47→21:31)
[2018-11-19] MEDS: Clopidogrel Bisulfate 75 MG Tablet PO (08:48)
[2018-11-19] MEDS: Aspirin E.C. 81 MG Tablet PO (08:48)
[2018-11-19] MEDS: Pantoprazole Sodium 40 MG Tablet PO (08:48)
--- NOTE | 2018-11-19 13:36 | PCM.PROGNOTE ---
Patient Problems: Active and Suspected Problems Chest pain (Acute) Abnormal stress test (Acute) Subjective: Seen and examined this morning. At that time he had no complaints. No chest pain, tightness, pressure, heaviness, shortness of breath, dizzy or lightheadedness. - Physical Exam General: Alert, Oriented x3, Cooperative HEENT: Atraumatic, PERRLA, EOMI, Normocephalic Neck: Supple, No JVD, Negative Carotid Bruits Lungs: Clear to auscultation, Normal air movement Cardiovascular: Regular rate, No murmurs Abdomen: Bowel Sounds Present, Soft, Non Tender Extremities: No edema, Capillary Refill Less than 3 Seconds Skin: No rashes, No breakdown Musculoskeletal: No Tenderness to Palpation of Joints or Extremities Neurological: Cranial nerves II-XII grossly intact Psych/Mental Status: Normal Affect, Appropriate Vital Signs Temp Pulse Resp BP Pulse Ox 97.6 F L 60 16 105/68 95 11/19/18 08:45 11/19/18 11:18 11/19/18 08:45 11/19/18 08:47 11/19/18 08:45 Oxygen Flow Rate (L/min) 2 Oxygen Delivery Method Room Air Weight: 183 lb 6.793 oz Body Mass Index (BMI) 28.7 Intake and Output for Last 24 Hours 11/17/18 11/18/18 11/19/18 23:59 23:59 23:59 Intake Total 300 / 300 1080 / 1080 100 / 100 Balance 300 / 300 1080 / 1080 100 / 100 Laboratory Tests Past 24 Hrs 11/19/18 05:00 Sodium 141 Potassium 4.0 Chloride 105 Carbon Dioxide 24.0 Anion Gap 12 BUN 20 H Creatinine 1.00 Estim Creat Clear Calc 73.44 Est GFR (MDRD) Af Amer 98 Est GFR (MDRD) Non-Af 81 BUN/Creatinine Ratio 20.0 Glucose 102 Calcium 8.8 Medical Necessity - Tobacco Use Smoking Status: Current some day smoker Tobacco Use: Cigarettes Assessment/Plan All Active Problems Chest pain (Acute) Abnormal stress test (Acute) 1. Chest pain - hx CAD with 2 prior stents. Still smokes 1/2 ppd. tele ok, EKG unchanged, trop neg. Stress test was abnormal. Will stay here for possible heart cath on tuesday. Continue beta-hayder, Lovenox, Plavix, as needed nitro and morphine. Dr. Thacker following. Heart cath tomorrow. 2. GERD - ppi 3. Depression - continue home meds 4. BPH - flomax 5. Hypothyroidism - synthroid. 6. Nicotine abuse - patch if desired. DVT ppx: therapeutic lovenox. This patient was seen by Ashwin Benavidez PA-C under the supervision of Dr. Cordero.
--- NOTE | 2018-11-19 13:48 | PN.CARD_ITS ---
Subjectve: The patient states is just feels better. He notes he has some difficulty swallowing at times. He has had no acute respiratory events. Objective: Vital Signs Temp Pulse Resp BP Pulse Ox 97.6 F L 60 16 105/68 95 11/19/18 08:45 11/19/18 11:18 11/19/18 08:45 11/19/18 08:47 11/19/18 08:45 Oxygen Flow Rate (L/min) 2 Oxygen Delivery Method Room Air Weight: 183 lb 6.793 oz Body Mass Index (BMI) 28.7 Intake and Output for Last 24 Hours 11/17/18 11/18/18 11/19/18 23:59 23:59 23:59 Intake Total 300 / 300 1080 / 1080 100 / 100 Balance 300 / 300 1080 / 1080 100 / 100 General: Awake, Alert, Oriented x 3, Cooperative, No Acute Distress HEENT: Atraumatic, Normocephalic, PERRL, EOMI Oral: Moist Mucosa Neck: Supple, Good ROM, No JVD Lungs: Clear to auscultation Cardiovascular: Regular Rhythm, Normal S1, Normal S2 Abdomen: Bowel Sounds Present, Soft, Non Tender Extremities: No edema Psych/Mental Status: Appropriate 11/19/18 05:00: Sodium 141, Potassium 4.0, Chloride 105, Carbon Dioxide 24.0, Anion Gap 12, BUN 20 H, Creatinine 1.00, Est GFR (MDRD) Af Amer 98, Est GFR (MDRD) Non-Af 81, BUN/Creatinine Ratio 20.0, Glucose 102, Calcium 8.8 Rhythm:Sinus rhythm Medical Necessity - Tobacco Use Smoking Status: Current some day smoker Tobacco Use: Cigarettes Assessment/Plan 1. Chest pain The patient has symptoms some of which were concerning for angina pectoris. His symptoms do not appear to be classic for other etiologies, at this time, such as acute pericarditis, etc. He has undergone noninvasive evaluation with the findings as noted above. At the present time he will continue to be monitored. He will continue medical management with optimization as best as possible for the possibility of underlying CAD and myocardial ischemia. He is scheduled for upcoming diagnostic cardiac catheterization. Again the procedure and resume been discussed with him. He is agreeable to this approach. 2. CAD status post PCI The details of the patient's history with respect to his CAD/PCI event are unknown period a copy of his medical records from [facility] will be requested for continuity of care purposes. In the interim he will continue to be followed. He will continue medical adjustment. He will proceed with further evaluation as noted above. 3. Abnormal stress test The patient does have an abnormal stress test. Again this raises concern about the possibility of progression of CAD and myocardial ischemia. Thus he will undergo evaluation and care as described above. 4. GERD He does have a history of GERD. He will continue evaluation care per internal medicine. The above was discussed her and view with the patient and Dr. Cordero. This note was generated using a voice recognition system and there may be incorrect words, spelling or punctuation that were not noted when reviewing the office note prior to saving.
--- NOTE | 2018-11-19 15:08 | EKG12_ITS ---
Test Reason : CP Blood Pressure : / mmHG Vent. Rate : 063 BPM Atrial Rate : 063 BPM P-R Int : 164 ms QRS Dur : 084 ms QT Int : 424 ms P-R-T Axes : 049 025 058 degrees QTc Int : 433 ms Normal sinus rhythm Normal ECG Confirmed by NATIVIDAD KING, DEDRA ([id number]), editor book KATHIA MAK ([id number] on 11/22/2018 10:47:29 AM Referred By: DR KIM Confirmed By:DEDRA HENSON MD
--- NOTE | 2018-11-19 19:20 | NURSING ---
pt reports chest pain at this time. 12 lead ekg ordered. nightshift RN in the room and handoff report given at this time
--- NOTE | 2018-11-19 19:29 | EKG12_ITS ---
Test Reason : CP Blood Pressure : / mmHG Vent. Rate : 058 BPM Atrial Rate : 058 BPM P-R Int : 164 ms QRS Dur : 082 ms QT Int : 438 ms P-R-T Axes : 055 024 047 degrees QTc Int : 429 ms Sinus bradycardia Otherwise normal ECG Confirmed by NATIVIDAD KING, DEDRA ([id number]), manuscript editor KATHIA MAK ([id number] on 11/22/2018 10:48:06 AM Referred By: CARLOS Confirmed By:DEDRA HENSON MD
[2018-11-19] MEDS: Atorvastatin Calcium 80 MG Tablet PO (21:23)
[2018-11-19] MEDS: Tamsulosin HCl 0.4 MG Capsule PO (21:23)
[2018-11-20] VITALS (16 sets, daily range): BP systolic 96–125; BP diastolic 56–76; PULSE 55–70; RESP 14–18; TEMP 36.5–36.6; O2SAT 93–98
[2018-11-20 03:34] LABS: Bacteria 0 SEEN /hpf (None Seen); Mucous, Urine 0 SEEN /hpf (<or=2+); Red Blood Cells-Urine 0 SEEN /hpf (0-5); White Blood Cells 0 SEEN /hpf (0-5)
[2018-11-20 03:36] LABS: Color, Urine Yellow (Yellow); Glucose, Dipstick Normal (Normal); Ketone-Dipstick Negative (Negative); Leukocyte Esterase-Dipstick Negative /ul (Negative); Nitrite-Dipstick Negative (Negative); Occult Blood-Urine Negative /ul (Negative); Protein-Dipstick Negative (Negative); Urine Bilirubin Dipstick Negative (Negative); Urine Clarity Clear (Clear); Urine Urobilinogen Normal (Normal)
[2018-11-20 03:41] LABS: Squamous Epithelial Cells - UA 0-5 SEEN /hpf (0-5)
[2018-11-20] MEDS: Levothyroxine 137 MCG Tablet PO (05:29)
[2018-11-20] MEDS: Clopidogrel Bisulfate 75 MG Tablet PO (05:29)
[2018-11-20] MEDS: Aspirin E.C. 81 MG Tablet PO (05:30)
[2018-11-20] MEDS: Metoprolol Tartrate 25 MG Tablet PO (05:31)
[2018-11-20] MEDS: 0.9% Normal Saline 1,000 ML 15 ML IV (05:31)
--- NOTE | 2018-11-20 05:55 | EKG12_ITS ---
Test Reason : AM EKG Blood Pressure : / mmHG Vent. Rate : 061 BPM Atrial Rate : 061 BPM P-R Int : 178 ms QRS Dur : 088 ms QT Int : 432 ms P-R-T Axes : 060 009 047 degrees QTc Int : 434 ms Normal sinus rhythm Normal ECG Confirmed by NATIVIDAD KING, DEDRA ([id number]), science editor KATHIA MAK ([id number]) on 11/22/2018 10:45:10 AM Referred By: DR KIM Confirmed By:DEDRA HENSON MD
[2018-11-20 05:59] LABS: Anion Gap 9 (5-15); BUN 18 mg/dL (7-18); BUN/Creat Ratio 17.5 RATIO (10-20); Calcium,Total 8.8 mg/dL (8.5-10.1); Chloride 105 mmol/L (98-107); Creatinine, Serum 1.03 mg/dL (0.70-1.30); EST Glomerular Filtration Rate 78 mL/min (>60); Est Glom Filt Rate - Afr Amer 95 mL/min (>60); Estimated Creatinine Clearance 71.31 ml/min; Glucose 102 mg/dL (74-106); Potassium 4.1 mmol/L (3.5-5.1); Sodium Level 142 mmol/L (136-145)
[2018-11-20 06:06] LABS: Absolute Lymphocyte Count 1.99 X10^3/ul (0.83-4.51); Absolute Neutrophil Count 3.9 X10^3/uL (2.0-7.7); Basophil# 0.02 X10^3/uL; Basophil% 0.3 % (0-1); Eosinophils% 1.5 % (0-5); Lymphocyte # 1.99 X10^3/ul (4.0); Lymphocyte % 29.9 % (19-41); Mean Corp Hgb Conc 34.1 g/gl (32-36); Mean Corpuscular Hgb 30.1 pg (27.0-32.0); Mean Corpuscular Volume 88.4 fL (80-94); Mean Platelet Vol. 11.2 fl (6.2-12.0); Monocyte# 0.68 X10^3/uL; Monocyte% 10.2 % (0-10); Neutrophil # 3.85 X10^3/uL (2.7-7.7); Neutrophil % 57.8 % (47-70); Platelet Count 187 K/mm3 (150-450); RBC Distribution Width CV 13.5 % (11.6-14.6); RBC Distribution Width SD 43.5 fl (35.1-43.9); Red Blood Count 4.98 M/mm3 (4.6-6.2); White Blood Count 6.7 K/mm3 (4.4-11.0)
[2018-11-20 06:13] LABS: POSITIVE COUNT NO; POSITIVE DIFFERENTIAL NO; POSITIVE MORPHOLOGY NO
[2018-11-20 06:33] LABS: Partial Thromboplast Time 32.6 Seconds (24.1-36.2)
--- NOTE | 2018-11-20 06:54 | NURSING ---
Report given to Carroting Machine Operator RN
--- NOTE | 2018-11-20 07:36 | ECHOD_ITS ---
Reason For Study: CAD Procedure This was a 2D Doppler, Color Flow transthoracic echocardiogram. Exam performed portable in patient room. Left Ventricle Normal LV size. Segmental dysfunction with preserved ejection fraction (see wall motion). The estimated ejection fraction is 55 %. No evidence for diastolic dysfunction. Infero-Basal: Hypokinetic. Right Ventricle Normal RV size. Normal systolic function. Atria Normal left atrium. Normal right atrium. No doppler evidence for ASD. Mitral Valve There is no mitral annular calcification. Normal mitral valve. Trivial mitral valve insufficiency. Tricuspid Valve Normal tricuspid valve. Trivial tricuspid valve insufficiency. Right ventricular systolic pressure estimated to be 24 mmHg. Aortic Valve Trisinus/trileaflet aortic valve. Mild focal aortic valve calcification. Pulmonic Valve The pulmonic valve is not well visualized. Great Vessels Borderline enlarged aortic root. Pericardium/Pleural No pericardial effusion. MMode/2D Measurements & Calculations LVIDd: 4.9 cm IVSd: 0.98 cm Ao root diam: 3.8 cm LVIDs: 3.6 cm LVPWd: 0.90 cm RVDd: 2.9 cm FS: 26.6 % LAV(MOD-sp4): 24.2 ml LVAd ap4: 25.8 cm2 SV(MOD-sp4): 36.8 ml EDV(MOD-sp4): 68.7 ml EDV(sp4-el): 70.0 ml LVAs ap4: 16.0 cm2 ESV(MOD-sp4): 31.9 ml ESV(sp4-el): 31.5 ml EF(MOD-sp4): 53.6 % EF(sp4-el): 55.1 % SV(sp4-el): 38.6 ml LA A4 area: 11.6 cm2 LA dimension(2D): 3.5 cm RA A4 area: 12.1 cm2 Time Measurements MV dec time: 0.19 sec Doppler Measurements & Calculations MV E max edd: 71.8 cm/sec Lat Peak E' Edd: 13.7 cm/sec Med Peak E' Edd: 7.5 cm/sec MV A max edd: 57.5 cm/sec E/E' lat: 5.2 E/E' med: 9.6 MV E/A: 1.2 Ao V2 max: 119.2 cm/sec LV V1 max: 105.9 cm/sec PA V2 max: 126.0 cm/sec Ao max P.7 mmHg LV V1 max P.5 mmHg TR max edd: 227.3 cm/sec TR max P.7 mmHg Interpretation Summary Segmental dysfunction with preserved ejection fraction (see wall motion). The estimated ejection fraction is 55 %. Trivial mitral valve insufficiency. Trivial tricuspid valve insufficiency. Mild focal aortic valve calcification. Borderline enlarged aortic root. Right ventricular systolic pressure estimated to be 24 mmHg. No evidence for diastolic dysfunction. Ordering Physician: Victoriano Thacker Referring Physician: CONCEPCION MATOS Performed By: Dafne Posey, RDCS, RVT
--- NOTE | 2018-11-20 08:03 | CL.D_ITS ---
Patient Name: AMADOR CEDILLO Study Date: 11/20/2018 Performing: Victoriano Thacker MD Ht: 66.92 inches 170 cm : 1960 Wt: 182.98 lbs 83 kg Age: 58 Gender: male BSA: 1.95 PROCEDURE(S) PERFORMED [id number] CLINICAL PROFILE AND INDICATIONS Indications: Worsening Angina, Suspected CAD Heart Failure: None Stress/Imaging Stress Test w/SPECT MPI: Yes Result: PositiveStress Test with SPECT MPI: Positive Angina Classification Anginal Classification w/in 2 Weeks: CCS III CAD Presentations: Unstable angina. CONCLUSIONS Elevated Left Ventricular End Diastolic Pressure Segmented LV systolic dysfunction- Mild LVEF: by LV gram 50 % [place] Multivessel CAD RCA Stent: Patent RECOMMENDATIONS Risk factor modification Medical therapy DESCRIPTION OF PROCEDURE The patient arrived to the procedure lab. The risks and benefits of the procedure as well as a full d escription of our services here and current unavailability of surgical backup were fully explained to the patient and/or their significant other prior to the catheterization. The Timeout was completed, verifying the correct patient and procedure. The patient's procedural site was prepped and draped in the usual fashion. Local anesthetic was given subcutaneously to right groin region with Lidocaine 2%. Using a modified Seldinger technique, arterial access was obtained via the right femoral artery, a 4 Fr sheath was inserted Left Coronary Artery selective angiography was performed in multiple views us ing a 4 Fr. JL5 catheter. Right Coronary Artery selective angiography was then performed in multiple views using a 4 Fr. 3DRC catheter. Left Ventriculography was performed in VILLARREAL projection using a 4 Fr . Pigtail catheter. LV to AO pullback pressures were then recorded.The arterial sheath was pulled and manual compression applied until hemostasis is achieved. CORONARY ANGIOGRAPHY DOMINANCE: Right Dominant LEFT HEART ASSESSMENT Left Ventricular Ejection Fraction: by LV Gram 50 % Elevated Left Ventricular End Diastolic Pressure LVEDP: 18 mmHg LEFT MAIN: Angiographically normal LEFT ANTERIOR DECENDING ARTERY: PROX LAD: Difffuse: Eccentric: 25 % Stenosis CIRCUMFLEX ARTERY: Diffuse: Eccentric:10-25 % Stenosis RAMUS: Mild luminal irregularities RIGHT CORONARY ARTERY: Mild luminal irregularities MID RCA: Previously placed stent is patent with mild luminal irregularities VALVE FINDINGS: Normal Aortic Valve function Normal Mitral Valve function AORTIC ROOT: Angiographically normal COMPLICATIONS No Complications PROCEDURE MEDICATIONS Versed 1 mg IV Oxygen: 2 L/min via nasal cannula SUMMARY OF HEMODYNAMIC DATA Time AIR REST ECG 07:06:54 AO 104/67 (81) SA 07:19:28 LV 124/1, 17 07:25:08 LV 123/4, 18 07:25:15 LV 109/16, 24 07:26:28 LV 107/13, 22 07:26:35 LVp 108/9, 18 07:26:40 AOp 99/66 (80) 07:26:45 Signed By Victoriano Thacker MD On 11/20/2018 08:02:59 Victoriano Thacker MD
--- NOTE | 2018-11-20 08:09 | PN.CARD_ITS ---
Subjectve: The patient is now status post diagnostic cardiac catheterization. He has had no new acute complaints. Objective: Vital Signs Temp Pulse Resp BP Pulse Ox 97.9 F 63 18 106/56 L 93 11/20/18 05:24 11/20/18 05:31 11/20/18 05:24 11/20/18 05:24 11/20/18 05:24 Oxygen Flow Rate (L/min) 2 Oxygen Delivery Method Room Air Weight: 183 lb 6.793 oz Body Mass Index (BMI) 28.7 Intake and Output for Last 24 Hours 11/18/18 11/19/18 11/20/18 23:59 23:59 23:59 Intake Total 1080 / 1080 2540 / 2540 Balance 1080 / 1080 2540 / 2540 General: Awake, Alert, Oriented x 3, Cooperative, No Acute Distress HEENT: Atraumatic, Normocephalic, PERRL, EOMI, Sclera Non Icteric Oral: Moist Mucosa Neck: Supple, Good ROM, No JVD Lungs: Clear to auscultation Cardiovascular: Regular Rhythm, Normal S1, Normal S2 Vascular: Normal Femoral Pulses Abdomen: Bowel Sounds Present, Soft, Non Tender Extremities: No Cyanosis, No Clubbing, No edema Neurological: No Focal Motor or Sensory Deficit Psych/Mental Status: Appropriate 11/20/18 00:00: Urine Color Yellow, Urine Clarity Clear, Urine pH 7.0, Ur Specific [place] 1.010, Urine Protein Negative, Urine Glucose (UA) Normal, Urine Ketones Negative, Urine Occult Blood Negative, Urine Nitrite Negative, Urine Bilirubin Negative, Urine Urobilinogen Normal, Ur Leukocyte Esterase Negative, Urine RBC 0 SEEN, Urine WBC 0 SEEN 11/20/18 05:20: WBC 6.7, RBC 4.98, Hgb 15.0, Hct 44.0, MCV 88.4, MCH 30.1, MCHC 34.1, RDW 13.5, RDW Differential 43.5, Plt Count 187, MPV 11.2, Immature Gran % (Auto) 0.300, Neut % (Auto) 57.8, Lymph % (Auto) 29.9, Ashley % (Auto) 10.2 H, Eos % (Auto) 1.5, Baso % (Auto) 0.3, Absolute Neuts (auto) 3.9, Total Counted Not Reportable 11/20/18 05:20: PT 13.0, INR 1.0, APTT 32.6 11/20/18 05:20: Sodium 142, Potassium 4.1, Chloride 105, Carbon Dioxide 28.0, Anion Gap 9, BUN 18, Creatinine 1.03, Est GFR (MDRD) Af Amer 95, Est GFR (MDRD) Non-Af 78, BUN/Creatinine Ratio 17.5, Glucose 102, Calcium 8.8 Rhythm: Sinus rhythm Cardiac Cath: In brief: Left ventricle: Basal inferior wall hypokinesis with an estimated LVEF 50%; left main coronary artery patent; LAD with proximal 25% eccentric stenosis; LCx with diffuse 10-25% eccentric stenosis; intermediate ramus with mild luminal irregularity; RCA with a mid stent being patent with mild luminal irregularities PCI: 07/26/2014: [facility]: RCA PTCA/stent with a Promus 3.53 mm x 24 mm L1 stent Medical Necessity - Tobacco Use Smoking Status: Current some day smoker Tobacco Use: Cigarettes Assessment/Plan 1. Chest pain The present time the patient has undergone cardiovascular evaluation. Based upon his cardiac catheterization he does not appear to have angiographically significant appearing CAD to explain his symptoms or his stress test findings. Thus his stress test appears to be a false positive. He should be considered for non-CAD evaluation of his chest discomfort. This may include the need for gastro enterology evaluation based upon his history of GERD and associated symptoms. 2. CAD status post PCI At the present time he will need to continue medical management. He will have a transthoracic echocardiogram to further evaluate his left ventricular wall thickness, motion, and overall systolic function. He will need continued future outpatient cardiovascular follow-up. Is his primary manager intelligence, Dr. Brady Zuñiga is retiring, he will be transferring his care to the [facility]. 3. GERD He does have a history of GERD. He will continue evaluation care per internal medicine. The above was discussed her and view with the patient and his spouse. This note was generated using a voice recognition system and there may be incorrect words, spelling or punctuation that were not noted when reviewing the office note prior to saving.
--- NOTE | 2018-11-20 08:47 | CASEMGMT ---
According to the [facility] website, the following are in-network tertiary facilities: [facility], [facility], [facility], [facility], [facility], [facility], [facility], [facility], [facility], and . Willie MORELAND CM
[2018-11-20] MEDS: buPROPion (SR) 150 MG Tablet.SA PO (09:52)
[2018-11-20] MEDS: Pantoprazole Sodium 40 MG Tablet PO (09:53)
--- NOTE | 2018-11-20 11:01 | DCINST_ITS ---
- Discharge Diagnoses Current Active Problems: Current Active and Chronic Problems Chest pain (Acute) CAD (coronary artery disease) (Chronic) GERD (gastroesophageal reflux disease) (Chronic) S/P PTCA (percutaneous transluminal coronary angioplasty) (Chronic) Abnormal stress test (Acute) You will use the following diet at home:: Cardiac Your food should be the consistency of: Regular Your liquids should be the consistency of: Regular/Thin Discharge Activity: Return to Normal Activity Weight Bearing Status: Full weight bearing Allergies/Adverse Reactions: Allergies Sulfa (Sulfonamide Antibiotics) Allergy (Verified 03/16/18 15:27) Unknown Medications to take at Discharge Atorvastatin Calcium [Lipitor] 80 mg PO QHS 03/16/18 Levothyroxine [Synthroid] 137 mcg PO MOTUWETHFR 03/16/18 Metoprolol Tartrate [Lopressor (beta hayder)] 25 mg PO BID 03/16/18 Pantoprazole Sodium [Protonix] 40 mg PO DAILY 03/16/18 Tamsulosin HCl [Flomax] 0.4 mg PO QHS 03/16/18 Zolpidem Tartrate [Ambien] 10 mg PO QHS PRN PRN 03/16/18 buPROPion SR [Wellbutrin SR (150mg tablets)] 150 mg PO BID 03/16/18 Aspirin E.C. [Ecotrin] 325 mg PO DAILY@0800 11/17/18 Cyanocobalamin (Vitamin B-12) [Vitamin B-12] 2,000 mcg PO DAILY 11/17/18 [place]-3 Fatty Acids/Fish Oil [Fish Oil 1,000 mg Capsule] 1,000 mg PO DAILY 11/17/18 Primary Care Physician: Franco Perez MD [Primary Care Provider] - Please follow up with your Primary Care Physician in: in 3 weeks Test Results: Test results from this visit will be discussed in further detail at your follow- up appointment, if applicable. Please Follow Up With: Brady Zuñiga MD When: in 2 weeks Proposed Discharge Date: 11/20/18
--- NOTE | 2018-11-20 14:56 | PCM.DC.SUM ---
<Ashwin Benavidez - Last Filed: 11/20/18 14:56> Discharge Date and Diagnosis - Problem List Patient Problems: Active and Suspected Problems Chest pain (Acute) Abnormal stress test (Acute) Date of Admission: 11/17/18 Date of Discharge: 11/20/18 - Primary Discharge Diagnosis Active and Suspected Problems Chest pain (Acute) - GERD Abnormal stress test (Acute), Acute cardiac issue ruled out Hx CAD prior Stent Ongoing Nicotine abuse Depression BPH Hypothyroidism - Secondary Discharge Diagnosis Chronic Problems CAD (coronary artery disease) (Chronic) GERD (gastroesophageal reflux disease) (Chronic) S/P PTCA (percutaneous transluminal coronary angioplasty) (Chronic) Hospital Course and Treatment Imaging Results: 11/20/18 07:36 Echo Complete [ECHO] Routine Consults: Cardiology-[place] Operations: None Procedures: 2-D Echocardiogram, Cardiac catheterization, Stress test Summary of Care Provided: Hospital course: The patient is a 58 year old M with past medical history of CAD with prior stent, ongoing nicotine abuse smoking 1/2 pack/day, history of GERD, depression, BPH, hypothyroidism, who presented to the emergency room with complaints of chest pain that began the night before presentation described as a 4 out of 10 midsternal chest pressure radiating into the left arm and back with associated nausea and dizziness. He had a negative EKG, negative troponin, negative EKG. He was admitted for chest pain workup placed in PCU. He had no events on telemetry. The following morning he underwent a stress test which was abnormal. Radiology was consulted. On Tuesday he underwent a cardiac catheterization which did not demonstrate an issue revealing significant stenosis and he was felt to have a false positive stress test. His symptoms were felt to be related to underlying GERD. We discussed the importance of nicotine cessation given his underlying coronary disease and acid reflux. He was advised to talk to his PCP about an upper endoscopy. He is already on a PPI. He was felt to be stable for discharge, he was discharged home. He will need to follow-up with his PCP in the next 3 weeks and follow-up with his rf test technician Dr. Gonzalez in 2 weeks. This patient was seen by Ashwin Benavidez PA-C under the supervision of Doctor Lee. [] Patient Problems: Active and Suspected Problems Chest pain (Acute) Abnormal stress test (Acute) - Physical Exam General: Alert, Oriented x3, Cooperative HEENT: Atraumatic, PERRLA, EOMI, Normocephalic Neck: Supple, No JVD, Negative Carotid Bruits Lungs: Clear to auscultation, Normal air movement Cardiovascular: Regular rate, No murmurs Abdomen: Bowel Sounds Present, Soft, Non Tender Extremities: No edema, Capillary Refill Less than 3 Seconds Skin: No rashes, No breakdown Musculoskeletal: No Tenderness to Palpation of Joints or Extremities Neurological: Cranial nerves II-XII grossly intact Psych/Mental Status: Normal Affect, Appropriate Vital Signs Temp Pulse Resp BP Pulse Ox 97.7 F L 63 15 105/71 95 11/20/18 08:15 11/20/18 12:17 11/20/18 12:00 11/20/18 12:00 11/20/18 12:00 Oxygen Flow Rate (L/min) 2 Oxygen Delivery Method Room Air Weight: 183 lb 6.793 oz Body Mass Index (BMI) 28.7 Intake and Output for Last 24 Hours 11/18/18 11/19/18 11/20/18 23:59 23:59 23:59 Intake Total 1080 / 1080 2540 / 2540 400 / 400 Output Total 300 / 300 Balance 1080 / 1080 2540 / 2540 100 / 100 Laboratory Tests Past 24 Hrs 11/20/18 11/20/18 11/20/18 00:00 05:20 05:20 WBC 6.7 RBC 4.98 Hgb 15.0 Hct 44.0 MCV 88.4 MCH 30.1 MCHC 34.1 RDW 13.5 RDW Differential 43.5 Plt Count 187 MPV 11.2 Immature Gran % (Auto) 0.300 Neut % (Auto) 57.8 Lymph % (Auto) 29.9 Baker % (Auto) 10.2 H Eos % (Auto) 1.5 Baso % (Auto) 0.3 Absolute Neuts (auto) 3.9 Absolute Lymphs (auto) 1.99 Total Counted Not Reportable PT 13.0 INR 1.0 APTT 32.6 Sodium Potassium Chloride Carbon Dioxide Anion Gap BUN Creatinine Estim Creat Clear Calc Est GFR (MDRD) Af Amer Est GFR (MDRD) Non-Af BUN/Creatinine Ratio Glucose Calcium Urine Color Yellow Urine Clarity Clear Urine pH 7.0 Ur Specific [place] 1.010 Urine Protein Negative Urine Glucose (UA) Normal Urine Ketones Negative Urine Occult Blood Negative Urine Nitrite Negative Urine Bilirubin Negative Urine Urobilinogen Normal Ur Leukocyte Esterase Negative Urine RBC 0 SEEN Urine WBC 0 SEEN Ur Squamous Epith Cells 0-5 SEEN Urine Bacteria 0 SEEN Urine Mucus 0 SEEN 11/20/18 05:20 WBC RBC Hgb Hct MCV MCH MCHC RDW RDW Differential Plt Count MPV Immature Gran % (Auto) Neut % (Auto) Lymph % (Auto) Baker % (Auto) Eos % (Auto) Baso % (Auto) Absolute Neuts (auto) Absolute Lymphs (auto) Total Counted PT INR APTT Sodium 142 Potassium 4.1 Chloride 105 Carbon Dioxide 28.0 Anion Gap 9 BUN 18 Creatinine 1.03 Estim Creat Clear Calc 71.31 Est GFR (MDRD) Af Amer 95 Est GFR (MDRD) Non-Af 78 BUN/Creatinine Ratio 17.5 Glucose 102 Calcium 8.8 Urine Color Urine Clarity Urine pH Ur Specific [place] Urine Protein Urine Glucose (UA) Urine Ketones Urine Occult Blood Urine Nitrite Urine Bilirubin Urine Urobilinogen Ur Leukocyte Esterase Urine RBC Urine WBC Ur Squamous Epith Cells Urine Bacteria Urine Mucus Discharge Diet: Low fat/ Low Cholesterol, 2000 mg Sodium Diet Discharge Activity: Return to Normal Activity Weight Bearing Status: Full weight bearing Home Medications: Medications to take at Discharge Atorvastatin Calcium [Lipitor] 80 mg PO QHS 03/16/18 Levothyroxine [Synthroid] 137 mcg PO MOTUWETHFR 03/16/18 Metoprolol Tartrate [Lopressor (beta hayder)] 25 mg PO BID 03/16/18 Pantoprazole Sodium [Protonix] 40 mg PO DAILY 03/16/18 Tamsulosin HCl [Flomax] 0.4 mg PO QHS 03/16/18 Zolpidem Tartrate [Ambien] 10 mg PO QHS PRN PRN 03/16/18 buPROPion SR [Wellbutrin SR (150mg tablets)] 150 mg PO BID 03/16/18 Aspirin E.C. [Ecotrin] 325 mg PO DAILY@0800 11/17/18 Cyanocobalamin (Vitamin B-12) [Vitamin B-12] 2,000 mcg PO DAILY 11/17/18 [place]-3 Fatty Acids/Fish Oil [Fish Oil 1,000 mg Capsule] 1,000 mg PO DAILY 11/17/18 Primary Care Physician: Franco Perez MD [Primary Care Provider] - Please follow up with your Primary Care Physician in: in 3 weeks Please Follow Up With: Brady Zuñiga MD When: in 2 weeks Medical Necessity - Tobacco Use Smoking Status: Current some day smoker Tobacco Use: Cigarettes Meaningful Use Info Meaningful Use Diagnoses (Choose all that apply): None applicable <Katiuska Macias - Last Filed: 11/20/18 16:07> Discharge Date and Diagnosis - Primary Discharge Diagnosis Active and Suspected Problems Chest pain (Acute) Abnormal stress test (Acute) - Secondary Discharge Diagnosis Chronic Problems CAD (coronary artery disease) (Chronic) GERD (gastroesophageal reflux disease) (Chronic) S/P PTCA (percutaneous transluminal coronary angioplasty) (Chronic) Hospital Course and Treatment Imaging Results: 11/20/18 07:36 Echo Complete [ECHO] Routine Summary of Care Provided: Patient seen by Ashwin Benavidez PA-c under my supervision The patient is a 58 year old M with a history of CAD status post stents and nicotine abuse. He was admitted with complaint of chest pain which he described as 4 out of 10 and midsternal radiating to his left arm with a stenosis and dizziness. Troponins x3 were negative and EKG was also negative. He was admitted to be worked up for chest pain rule out ACS. He had a stress test which was abnormal and cardiology was therefore consulted. He had a cardiac catheterization on 11/20/2018 which did not reveal any significant stenosis. Thank was therefore that a stress test might have been a false positive and his underlying symptoms were possibly related to GERD. 2D echo done showed EF of 55% with hypokinetic inferior basal wall and segmental dysfunction and RVSP of 24 mmHg. No evidence of diastolic dysfunction.. Patient remained stable and was discharged home on 11/20/2018. He was counseled strongly about the importance of nicotine cessation and is follow-up with his PCP to be referred for an upper endoscopy. He was discharged on a PPI which he had already been on. He is to follow-up with his rf test technician and primary care doctor. Patient seen and examined prior to discharge. He had no complaints and felt well. Review of systems otherwise negative. Labs and vitals reviewed. Home medications reviewed and reconciled. o/e: [] Vital Signs Height 5 ft 7 in Weight: 183 lb 6.793 oz Weight in Pounds 183.4 lbs Pulse Ox 95 Temperature 97.7 F Pulse Rate 63 Respiratory Rate 15 Blood Pressure [BP] 99/55 Blood Pressure 105/71 Blood Pressure Position [BP] Semi-Fowlers Blood Pressure Position Semi-Fowlers General: Awake, Alert, Oriented x 3, Cooperative, No Acute Distress HEENT: Atraumatic, Normocephalic, PERRL, EOMI, Sclera Non Icteric Oral: Moist Mucosa Neck: Supple, Good ROM, No JVD Lungs: Clear to auscultation Cardiovascular: Regular Rhythm, Normal S1, Normal S2 Vascular: Normal Femoral Pulses Abdomen: Bowel Sounds Present, Soft, Non Tender Extremities: No Cyanosis, No Clubbing, No edema Neurological: No Focal Motor or Sensory Deficit Psych/Mental Status: Appropriate Plan as discussed above. Patient's rf test technician Dr. Gonzalez is retiring and so patient will be transferring his care to the [facility]. I have reviewed Ashwin Benavidez PA-C's note and agree with the above plan and management. - Physical Exam Vital Signs Temp Pulse Resp BP Pulse Ox 97.7 F L 63 15 105/71 95 11/20/18 08:15 11/20/18 12:17 11/20/18 12:00 11/20/18 12:00 11/20/18 12:00 Oxygen Flow Rate (L/min) 2 Oxygen Delivery Method Room Air Weight: 183 lb 6.793 oz Body Mass Index (BMI) 28.7 Intake and Output for Last 24 Hours 11/18/18 11/19/18 11/20/18 23:59 23:59 23:59 Intake Total 1080 / 1080 2540 / 2540 400 / 400 Output Total 300 / 300 Balance 1080 / 1080 2540 / 2540 100 / 100 Laboratory Tests Past 24 Hrs 11/20/18 11/20/18 11/20/18 00:00 05:20 05:20 WBC 6.7 RBC 4.98 Hgb 15.0 Hct 44.0 MCV 88.4 MCH 30.1 MCHC 34.1 RDW 13.5 RDW Differential 43.5 Plt Count 187 MPV 11.2 Immature Gran % (Auto) 0.300 Neut % (Auto) 57.8 Lymph % (Auto) 29.9 Baker % (Auto) 10.2 H Eos % (Auto) 1.5 Baso % (Auto) 0.3 Absolute Neuts (auto) 3.9 Absolute Lymphs (auto) 1.99 Total Counted Not Reportable PT 13.0 INR 1.0 APTT 32.6 Sodium Potassium Chloride Carbon Dioxide Anion Gap BUN Creatinine Estim Creat Clear Calc Est GFR (MDRD) Af Amer Est GFR (MDRD) Non-Af BUN/Creatinine Ratio Glucose Calcium Urine Color Yellow Urine Clarity Clear Urine pH 7.0 Ur Specific [place] 1.010 Urine Protein Negative Urine Glucose (UA) Normal Urine Ketones Negative Urine Occult Blood Negative Urine Nitrite Negative Urine Bilirubin Negative Urine Urobilinogen Normal Ur Leukocyte Esterase Negative Urine RBC 0 SEEN Urine WBC 0 SEEN Ur Squamous Epith Cells 0-5 SEEN Urine Bacteria 0 SEEN Urine Mucus 0 SEEN 11/20/18 05:20 WBC RBC Hgb Hct MCV MCH MCHC RDW RDW Differential Plt Count MPV Immature Gran % (Auto) Neut % (Auto) Lymph % (Auto) [place] % (Auto) Eos % (Auto) Baso % (Auto) Absolute Neuts (auto) Absolute Lymphs (auto) Total Counted PT INR APTT Sodium 142 Potassium 4.1 Chloride 105 Carbon Dioxide 28.0 Anion Gap 9 BUN 18 Creatinine 1.03 Estim Creat Clear Calc 71.31 Est GFR (MDRD) Af Amer 95 Est GFR (MDRD) Non-Af 78 BUN/Creatinine Ratio 17.5 Glucose 102 Calcium 8.8 Urine Color Urine Clarity Urine pH Ur Specific [place] Urine Protein Urine Glucose (UA) Urine Ketones Urine Occult Blood Urine Nitrite Urine Bilirubin Urine Urobilinogen Ur Leukocyte Esterase Urine RBC Urine WBC Ur Squamous Epith Cells Urine Bacteria Urine Mucus Call your doctor if you observe: Shortness of breath, Dizziness, Chest pain Disposition: Home Minutes spent on discharge:: 40 Patient Condition:: Stable Code Visit Inpatient E&M: 18587 Disch Hosp
--- NOTE | 2018-11-20 15:01 | DS.PCM_ITS ---
Addendum entered and electronically signed by GAETANO Plunkett 11/22/18 09:40: Code Visit Addendum: Correction: Patient seen and examined by Ashwin Benavidez PA-C under the supervision of Dr. Macias Original Note: <Ashwin Benavidez - Last Filed: 11/20/18 14:56> Discharge Date and Diagnosis - Problem List Patient Problems: Active and Suspected Problems Chest pain (Acute) Abnormal stress test (Acute) Date of Admission: 11/17/18 Date of Discharge: 11/20/18 - Primary Discharge Diagnosis Active and Suspected Problems Chest pain (Acute) - GERD Abnormal stress test (Acute), Acute cardiac issue ruled out Hx CAD prior Stent Ongoing Nicotine abuse Depression BPH Hypothyroidism - Secondary Discharge Diagnosis Chronic Problems CAD (coronary artery disease) (Chronic) GERD (gastroesophageal reflux disease) (Chronic) S/P PTCA (percutaneous transluminal coronary angioplasty) (Chronic) Hospital Course and Treatment Imaging Results: 11/20/18 07:36 Echo Complete [ECHO] Routine Consults: Cardiology-[place] Operations: None Procedures: 2-D Echocardiogram, Cardiac catheterization, Stress test Summary of Care Provided: Hospital course: The patient is a 58 year old M with past medical history of CAD with prior stent, ongoing nicotine abuse smoking 1/2 pack/day, history of GERD, depression, BPH, hypothyroidism, who presented to the emergency room with complaints of chest pain that began the night before presentation described as a 4 out of 10 midsternal chest pressure radiating into the left arm and back with associated nausea and dizziness. He had a negative EKG, negative troponin, negative EKG. He was admitted for chest pain workup placed in PCU. He had no events on telemetry. The following morning he underwent a stress test which was abnormal. Radiology was consulted. On Tuesday he underwent a cardiac catheterization which did not demonstrate an issue revealing significant stenosis and he was felt to have a false positive stress test. His symptoms were felt to be related to underlying GERD. We discussed the importance of nicotine cessation given his underlying coronary disease and acid reflux. He was advised to talk to his PCP about an upper endoscopy. He is already on a PPI. He was felt to be stable for discharge, he was discharged home. He will need to follow-up with his PCP in the next 3 weeks and follow-up with his wool fleece grader Dr. Gonzalez in 2 weeks. This patient was seen by Ashwin Benavidez PA-C under the supervision of Doctor Jesus. [] Patient Problems: Active and Suspected Problems Chest pain (Acute) Abnormal stress test (Acute) - Physical Exam General: Alert, Oriented x3, Cooperative HEENT: Atraumatic, PERRLA, EOMI, Normocephalic Neck: Supple, No JVD, Negative Carotid Bruits Lungs: Clear to auscultation, Normal air movement Cardiovascular: Regular rate, No murmurs Abdomen: Bowel Sounds Present, Soft, Non Tender Extremities: No edema, Capillary Refill Less than 3 Seconds Skin: No rashes, No breakdown Musculoskeletal: No Tenderness to Palpation of Joints or Extremities Neurological: Cranial nerves II-XII grossly intact Psych/Mental Status: Normal Affect, Appropriate Vital Signs Temp Pulse Resp BP Pulse Ox 97.7 F L 63 15 105/71 95 11/20/18 08:15 11/20/18 12:17 11/20/18 12:00 11/20/18 12:00 11/20/18 12:00 Oxygen Flow Rate (L/min) 2 Oxygen Delivery Method Room Air Weight: 183 lb 6.793 oz Body Mass Index (BMI) 28.7 Intake and Output for Last 24 Hours 11/18/18 11/19/18 11/20/18 23:59 23:59 23:59 Intake Total 1080 / 1080 2540 / 2540 400 / 400 Output Total 300 / 300 Balance 1080 / 1080 2540 / 2540 100 / 100 Laboratory Tests Past 24 Hrs 11/20/18 11/20/18 11/20/18 00:00 05:20 05:20 WBC 6.7 RBC 4.98 Hgb 15.0 Hct 44.0 MCV 88.4 MCH 30.1 MCHC 34.1 RDW 13.5 RDW Differential 43.5 Plt Count 187 MPV 11.2 Immature Gran % (Auto) 0.300 Neut % (Auto) 57.8 Lymph % (Auto) 29.9 [place] % (Auto) 10.2 H Eos % (Auto) 1.5 Baso % (Auto) 0.3 Absolute Neuts (auto) 3.9 Absolute Lymphs (auto) 1.99 Total Counted Not Reportable PT 13.0 INR 1.0 APTT 32.6 Sodium Potassium Chloride Carbon Dioxide Anion Gap BUN Creatinine Estim Creat Clear Calc Est GFR (MDRD) Af Amer Est GFR (MDRD) Non-Af BUN/Creatinine Ratio Glucose Calcium Urine Color Yellow Urine Clarity Clear Urine pH 7.0 Ur Specific [place] 1.010 Urine Protein Negative Urine Glucose (UA) Normal Urine Ketones Negative Urine Occult Blood Negative Urine Nitrite Negative Urine Bilirubin Negative Urine Urobilinogen Normal Ur Leukocyte Esterase Negative Urine RBC 0 SEEN Urine WBC 0 SEEN Ur Squamous Epith Cells 0-5 SEEN Urine Bacteria 0 SEEN Urine Mucus 0 SEEN 11/20/18 05:20 WBC RBC Hgb Hct MCV MCH MCHC RDW RDW Differential Plt Count MPV Immature Gran % (Auto) Neut % (Auto) Lymph % (Auto) [place] % (Auto) Eos % (Auto) Baso % (Auto) Absolute Neuts (auto) Absolute Lymphs (auto) Total Counted PT INR APTT Sodium 142 Potassium 4.1 Chloride 105 Carbon Dioxide 28.0 Anion Gap 9 BUN 18 Creatinine 1.03 Estim Creat Clear Calc 71.31 Est GFR (MDRD) Af Amer 95 Est GFR (MDRD) Non-Af 78 BUN/Creatinine Ratio 17.5 Glucose 102 Calcium 8.8 Urine Color Urine Clarity Urine pH Ur Specific [place] Urine Protein Urine Glucose (UA) Urine Ketones Urine Occult Blood Urine Nitrite Urine Bilirubin Urine Urobilinogen Ur Leukocyte Esterase Urine RBC Urine WBC Ur Squamous Epith Cells Urine Bacteria Urine Mucus Discharge Diet: Low fat/ Low Cholesterol, 2000 mg Sodium Diet Discharge Activity: Return to Normal Activity Weight Bearing Status: Full weight bearing Home Medications: Medications to take at Discharge Atorvastatin Calcium [Lipitor] 80 mg PO QHS 03/16/18 Levothyroxine [Synthroid] 137 mcg PO MOTUWETHFR 03/16/18 Metoprolol Tartrate [Lopressor (beta hayder)] 25 mg PO BID 03/16/18 Pantoprazole Sodium [Protonix] 40 mg PO DAILY 03/16/18 Tamsulosin HCl [Flomax] 0.4 mg PO QHS 03/16/18 Zolpidem Tartrate [Ambien] 10 mg PO QHS PRN PRN 03/16/18 buPROPion SR [Wellbutrin SR (150mg tablets)] 150 mg PO BID 03/16/18 Aspirin E.C. [Ecotrin] 325 mg PO DAILY@0800 11/17/18 Cyanocobalamin (Vitamin B-12) [Vitamin B-12] 2,000 mcg PO DAILY 11/17/18 [place]-3 Fatty Acids/Fish Oil [Fish Oil 1,000 mg Capsule] 1,000 mg PO DAILY 11/17/18 Primary Care Physician: Franco Perez MD [Primary Care Provider] - Please follow up with your Primary Care Physician in: in 3 weeks Please Follow Up With: Brady Zuñiga MD When: in 2 weeks Medical Necessity - Tobacco Use Smoking Status: Current some day smoker Tobacco Use: Cigarettes Meaningful Use Info Meaningful Use Diagnoses (Choose all that apply): None applicable <Katiuska Macias - Last Filed: 11/20/18 16:07> Discharge Date and Diagnosis - Primary Discharge Diagnosis Active and Suspected Problems Chest pain (Acute) Abnormal stress test (Acute) - Secondary Discharge Diagnosis Chronic Problems CAD (coronary artery disease) (Chronic) GERD (gastroesophageal reflux disease) (Chronic) S/P PTCA (percutaneous transluminal coronary angioplasty) (Chronic) Hospital Course and Treatment Imaging Results: 11/20/18 07:36 Echo Complete [ECHO] Routine Summary of Care Provided: Patient seen by Ashwin Benavidez PA-c under my supervision The patient is a 58 year old M with a history of CAD status post stents and nicotine abuse. He was admitted with complaint of chest pain which he described as 4 out of 10 and midsternal radiating to his left arm with a stenosis and dizziness. Troponins x3 were negative and EKG was also negative. He was admitted to be worked up for chest pain rule out ACS. He had a stress test which was abnormal and cardiology was therefore consulted. He had a cardiac catheterization on 11/20/2018 which did not reveal any significant stenosis. Thank was therefore that a stress test might have been a false positive and his underlying symptoms were possibly related to GERD. 2D echo done showed EF of 55% with hypokinetic inferior basal wall and segmental dysfunction and RVSP of 24 mmHg. No evidence of diastolic dysfunction.. Patient remained stable and was discharged home on 11/20/2018. He was counseled strongly about the importance of nicotine cessation and is follow-up with his PCP to be referred for an upper endoscopy. He was discharged on a PPI which he had already been on. He is to follow-up with his wool fleece grader and primary care doctor. Patient seen and examined prior to discharge. He had no complaints and felt well. Review of systems otherwise negative. Labs and vitals reviewed. Home medications reviewed and reconciled. o/e: [] Vital Signs Height 5 ft 7 in Weight: 183 lb 6.793 oz Weight in Pounds 183.4 lbs Pulse Ox 95 Temperature 97.7 F Pulse Rate 63 Respiratory Rate 15 Blood Pressure [BP] 99/55 Blood Pressure 105/71 Blood Pressure Position [BP] Semi-Fowlers Blood Pressure Position Semi-Fowlers General: Awake, Alert, Oriented x 3, Cooperative, No Acute Distress HEENT: Atraumatic, Normocephalic, PERRL, EOMI, Sclera Non Icteric Oral: Moist Mucosa Neck: Supple, Good ROM, No JVD Lungs: Clear to auscultation Cardiovascular: Regular Rhythm, Normal S1, Normal S2 Vascular: Normal Femoral Pulses Abdomen: Bowel Sounds Present, Soft, Non Tender Extremities: No Cyanosis, No Clubbing, No edema Neurological: No Focal Motor or Sensory Deficit Psych/Mental Status: Appropriate Plan as discussed above. Patient's wool fleece grader Dr. Gonzalez is retiring and so patient will be transferring his care to the [facility]. I have reviewed Ashwin Benavidez PA-C's note and agree with the above plan and management. - Physical Exam Vital Signs Temp Pulse Resp BP Pulse Ox 97.7 F L 63 15 105/71 95 11/20/18 08:15 11/20/18 12:17 11/20/18 12:00 11/20/18 12:00 11/20/18 12:00 Oxygen Flow Rate (L/min) 2 Oxygen Delivery Method Room Air Weight: 183 lb 6.793 oz Body Mass Index (BMI) 28.7 Intake and Output for Last 24 Hours 11/18/18 11/19/18 11/20/18 23:59 23:59 23:59 Intake Total 1080 / 1080 2540 / 2540 400 / 400 Output Total 300 / 300 Balance 1080 / 1080 2540 / 2540 100 / 100 Laboratory Tests Past 24 Hrs 11/20/18 11/20/18 11/20/18 00:00 05:20 05:20 WBC 6.7 RBC 4.98 Hgb 15.0 Hct 44.0 MCV 88.4 MCH 30.1 MCHC 34.1 RDW 13.5 RDW Differential 43.5 Plt Count 187 MPV 11.2 Immature Gran % (Auto) 0.300 Neut % (Auto) 57.8 Lymph % (Auto) 29.9 [place] % (Auto) 10.2 H Eos % (Auto) 1.5 Baso % (Auto) 0.3 Absolute Neuts (auto) 3.9 Absolute Lymphs (auto) 1.99 Total Counted Not Reportable PT 13.0 INR 1.0 APTT 32.6 Sodium Potassium Chloride Carbon Dioxide Anion Gap BUN Creatinine Estim Creat Clear Calc Est GFR (MDRD) Af Amer Est GFR (MDRD) Non-Af BUN/Creatinine Ratio Glucose Calcium Urine Color Yellow Urine Clarity Clear Urine pH 7.0 Ur Specific [place] 1.010 Urine Protein Negative Urine Glucose (UA) Normal Urine Ketones Negative Urine Occult Blood Negative Urine Nitrite Negative Urine Bilirubin Negative Urine Urobilinogen Normal Ur Leukocyte Esterase Negative Urine RBC 0 SEEN Urine WBC 0 SEEN Ur Squamous Epith Cells 0-5 SEEN Urine Bacteria 0 SEEN Urine Mucus 0 SEEN 11/20/18 05:20 WBC RBC Hgb Hct MCV MCH MCHC RDW RDW Differential Plt Count MPV Immature Gran % (Auto) Neut % (Auto) Lymph % (Auto) [place] % (Auto) Eos % (Auto) Baso % (Auto) Absolute Neuts (auto) Absolute Lymphs (auto) Total Counted PT INR APTT Sodium 142 Potassium 4.1 Chloride 105 Carbon Dioxide 28.0 Anion Gap 9 BUN 18 Creatinine 1.03 Estim Creat Clear Calc 71.31 Est GFR (MDRD) Af Amer 95 Est GFR (MDRD) Non-Af 78 BUN/Creatinine Ratio 17.5 Glucose 102 Calcium 8.8 Urine Color Urine Clarity Urine pH Ur Specific [place] Urine Protein Urine Glucose (UA) Urine Ketones Urine Occult Blood Urine Nitrite Urine Bilirubin Urine Urobilinogen Ur Leukocyte Esterase Urine RBC Urine WBC Ur Squamous Epith Cells Urine Bacteria Urine Mucus Call your doctor if you observe: Shortness of breath, Dizziness, Chest pain Disposition: Home Minutes spent on discharge:: 40 Patient Condition:: Stable Code Visit Inpatient E&M: 23966 Disch Hosp
== END 2018-11-20 11:01 | disposition home or self-care (01) ==
LOC: ED 15:54 → PCU 18:17
PROVIDERS: Internal Medicine; Internal Medicine Cardiovascular Disease; Admitting Provider Family Medicine; Emergency Provider Emergency Medicine; Family Provider Internal Medicine; PCP Internal Medicine; Visit Provider Student in an Organized Health Care Education/Training Program
DX: R07.89 Other chest pain (principal); I25.2 Old myocardial infarction; I25.10 Atherosclerotic heart disease of native coronary artery without angina pectoris; R06.00 Dyspnea, unspecified; K21.9 Gastro-esophageal reflux disease without esophagitis; Z95.5 Presence of coronary angioplasty implant and graft; Z79.899 Other long term (current) drug therapy; F17.210 Nicotine dependence, cigarettes, uncomplicated; E03.9 Hypothyroidism, unspecified; F32.9 Major depressive disorder, single episode, unspecified; N40.0 Benign prostatic hyperplasia without lower urinary tract symptoms; R94.39 Abnormal result of other cardiovascular function study; Z79.82 Long term (current) use of aspirin; R42 Dizziness and giddiness
CPT/HCPCS: 36415; 71045; 78452; 80048; 81001; 84484; 85025; 85610; 85730; 93005; 93017; 93306; 93458; 96372; 99152; 99218; 99285; A9500; J7030; A4216; C1769; C1894; G0378; J2785; Q9967

== ENCOUNTER → 2020-03-13 16:57 | Outpatient (CLI) | payer OTHER, SELFPAY ==
[2019-07-30 08:56] VITALS: BMI 29.1
--- NOTE | 2020-03-13 17:25 | MRI_ITS ---
STUDY: MRI RIGHT SHOULDER REASON FOR EXAM: Male, 59 years old. decreased rom, R shoulder pain, injury 03/03/2020 TECHNIQUE: Standardized fat and water weighted pulse sequences were obtained in all 3 orthogonal planes. COMPARISON: None. FINDINGS: Moderate supraspinatus and infraspinous tendinosis and peritendinitis as with a 5 x 5 mm 50% depth bursal sided partial-thickness tear of the distal anterior supraspinatus tendon at the footprint. There is subscapularis tendinosis with tendon thickening, but without a demonstrated tendon tear. Normal teres minor tendon. Normal supraspinatus muscle. Normal infraspinatus muscle. Normal subscapularis muscle. Normal teres minor muscle. Normal glenohumeral articulation. Normal humeral head and visualized proximal humerus. Normal biceps labral complex. Normal intracapsular long biceps tendon. Normal labrum. Normal capsulo- ligamentous complex. Normal rotator interval. Moderate acromioclavicular joint arthrosis with capsulitis, erosions, and subchondral edema. There is a Type II morphology (curved), with a neutral orientation. There is no subacromial-subdeltoid bursal fluid. Normal visualized coracohumeral and coracoacromial ligaments. Normal quadrilateral space. Normal axillary space. Normal deltoid muscle. Normal trapezius muscle. MRI/Upper Ext Joint Only(Routine) IMPRESSION: Moderate supraspinatus and infraspinatus tendinosis and peritendinitis with a 5 x 5 mm 50% depth bursal sided partial-thickness tear of the distal anterior supraspinatus tendon at the footprint. No muscular atrophy. Electronically Signed: Michael Sneed MD at 11:07 EDT Tel , Service support ,
== END ==
PROVIDERS: PCP Internal Medicine; Referring Provider Family Medicine; Visit Provider Family Medicine
DX: S43.401A Unspecified sprain of right shoulder joint, initial encounter (principal)
CPT/HCPCS: 73221

== ENCOUNTER 2020-06-01 16:39 | Emergency (ER) | payer OTHER, SELFPAY ==
[2019-07-30 08:56] VITALS: BMI 29.1
[2020-06-01 16:40] VITALS: BP 96/73; PULSE 88; RESP 18; TEMP 36.4; O2SAT 95; BMI 29.0
[2020-06-01 16:41] VITALS: BP 96/73; PULSE 88; RESP 18; TEMP 36.4; O2SAT 95
--- NOTE | 2020-06-01 17:05 | RAD_ITS ---
STUDY: X-RAY - LEFT TIBIA AND FIBULA REASON FOR EXAM: Male, 59 years old. large laceration to lower leg from chainsaw TECHNIQUE: 2 view(s) of the tibia and fibula were obtained. COMPARISON: None. FINDINGS: Normal visualized tibia. Normal visualized fibula. There is a laceration of the anterior proximal lower leg. RAD/Tibia & Fibula 2 Views IMPRESSION: No fracture or malalignment. Anterior proximal lower leg soft tissue injury/laceration. Electronically Signed: Sotero Suazo MD ([place]) at 17:21 EDT , Service support ,
--- NOTE | 2020-06-01 17:06 | ED.DCSUM_ITS ---
History of Present Illness <Jose Witt - Last Filed: 06/01/20 17:52> Informant: Patient, Family Occurred: Today Mechanism/Context: Incised Onset: Today Context: Sudden Onset Timing: Continuous Quality of Pain: Sharp Location: left leg Current Severity: Severe Maximum Severity: Severe Worsened by: movement Relieved by: rest Associated Symptoms: Negative for: Parasthesia, Weakness, Loss of Funtion Narrative: 59-year-old male presents with a left leg laceration he was walking holding his chain saw he tripped his arm swung down and he lacerated his left leg. Patient is not on blood thinners. He is ambulatory. He denies any other injuries. Tetanus Immunization: <5 years Prior similar symptoms: No Recent Illness/Hospitalization: No <Que Mcgowan - Last Filed: 06/01/20 18:13> Chief Complaint: Laceration Past Medical History - Family History Maternal Family History: Family History (Last Reviewed 12/28/18 @ 16:00 by Judith Gutierrez) Father Myocardial infarction, Onset Age: 61 Mother Diabetes Paternal Family History: Family History (Last Reviewed 12/28/18 @ 16:00 by Judith Gutierrez) Father Myocardial infarction, Onset Age: 61 Mother Diabetes <Jose Witt - Last Filed: 06/01/20 17:52> Past Medical History: - - CAD, HTN, HPL, Hypothyroidism Surgical History: angioplasty, cataract, herniorrhaphy Smoking Status: Current some day smoker - Family History Maternal Family History: Family History (Last Reviewed 12/28/18 @ 16:00 by Judith Gutierrez) Father Myocardial infarction, Onset Age: 61 Mother Diabetes Family History: Reports: Diabetes Paternal Family History: Family History (Last Reviewed 12/28/18 @ 16:00 by Judith Gutierrez) Father Myocardial infarction, Onset Age: 61 Mother Diabetes Family History: Reports: Heart Disease <Que Mcgowan - Last Filed: 06/01/20 18:13> - Allergies and Home Meds Allergies/Adverse Reactions: Allergies Sulfa (Sulfonamide Antibiotics) Allergy (Verified 06/01/20 16:42) Unknown Primary Care Physician: Franco Perez MD [Primary Care Provider] - Review of Systems All systems negative except as indicated General: Denies: Chills, Fever, Sweats Eyes: Denies: Visual changes - bilaterally, Diplopia ENT: Denies: Rhinorrhea, Sore throat Cardiovascular: Denies: Chest pain, Palpitations Respiratory: Denies: Dyspnea, Cough, Dyspnea on exertion Gastrointestinal: Denies: Abdominal pain, Nausea, Vomiting, Diarrhea, Melena, Hematochezia Genitourinary: Denies: Dysuria, Hematuria, Frequency Musculoskeletal: Reports: Extremity Pain. Denies: Back pain, Swelling Skin: Reports: Wounds. Denies: Rash Neurological: Denies: Headache, Weakness, Numbness <Que Mcgowan - Last Filed: 06/01/20 18:13> Physical Exam Vital Signs/Narrative: Vital Signs Temp Pulse Resp BP Pulse Ox 06/01/20 16:41 97.6 F L 88 18 96/73 95 06/01/20 16:40 97.6 F L 88 18 96/73 95 <Jose Witt - Last Filed: 06/01/20 17:52> Vital Signs/Narrative: Vital Signs Temp Pulse Resp BP Pulse Ox 06/01/20 16:41 97.6 F L 88 18 96/73 95 06/01/20 16:40 97.6 F L 88 18 96/73 95 Inital Vital Signs reviewed: Yes - Extremity Exam Left Tib Fib: - - 7 centimeters laceration to his anterior left leg. No active bleeding. Compartment is soft. He is able to plantarflex and dorsiflex actively. DP and PT pulse normal. He has normal sensation throughout his left lower extremity. No injury to the knee, normal range of motion of the knee actively General: Well nourished, Well developed Head: Normocephalic, Atraumatic Eyes: Perrl, EOMI ENT: No Trauma, Moist Mucous Membranes Neck: Nontender, Full ROM Cardiovascular: Regular rate, Regular rhythm, No murmurs Respiratory: No distress, CTA bilaterally, Chest nontender Abdomen: Soft, Nontender, Nondistended, Normal bowel sounds Back: Nontender Skin: Normal color, No rash, Trauma - 7 cm laceration left leg Neurological: Alert, Oriented x3, Cranial nerves II-XII grossly intact, Normal Strength, Normal Sensation Psychological: Normal affect <Que Mcgowan - Last Filed: 06/01/20 18:13> Diagnostic/Tx/Re-eval - Medical Decision Making Seen and evaluated independently and in conjunction with physician life science research assistant. Agree with notes above unless documented otherwise. Patient has full-thickness deep irregular laceration to the left mid murphy lower leg. It is just lateral to the bone and does not appear to involve it, x-ray confirms that. It is through the investing fascia and into the muscle of what is likely the superficial peroneal muscular compartment. The muscle appears to be grossly intact, the injury probably involves some of the muscle fibers. It moves when he dorsiflex and plantar flexes his foot. All compartments are soft. Plan is for repair, prophylactic antibiotics, close outpatient follow-up. <Jose Witt - Last Filed: 06/01/20 17:52> Impressions Tibia/Fibula X-Ray 06/01/20 17:05 IMPRESSION: No fracture or malalignment. Anterior proximal lower leg soft tissue injury/laceration. Electronically Signed: Sotero Suazo MD ([place]) at 17:21 EDT , Service support , 06/01/20 17:05 Xray Tibia [Tibia & Fibula 2 Views] [RAD] Stat - Medical Decision Making Patient's x-ray shows no foreign body. The wound was anesthetized and thoroughly irrigated no evidence of muscle injury there is no foreign body there is no arterial bleeding. It was closed with subcutaneous sutures, a total of 3 Monocryl 4?0. It was then closed with 3 horizontal mattress followed by 12 simple interrupted sutures. Patient was placed on Keflex. He was advised to rest ice and elevate. He was advised to have a wound check in the next 2 to 3 days with his family doctor and if he develops worsening symptoms he was advised to return to the emergency department. Discussed proper wound care and signs of infection that he needs to monitor for <Que Mcgowan - Last Filed: 06/01/20 18:13> Procedures - Lacerations No standard instances Length: 7 cm Depth: Sub Q Shape: Linear Prep: Sterile Conditions, Chlorhexadine Laceration repair: Debrideded, Irrigated, Lidocaine, Local, Skin sutures, Subcutaneous sutures, Wound explored Irrigated (ml): 120 Number of Sutures/Víctor: 15 Suture Information: Ethilon, Simple, Vertical, Mattress, 4-0 <Que Mcgowan - Last Filed: 06/01/20 18:13> ED Disposition <Jose Witt - Last Filed: 06/01/20 17:52> <Que Mcgowan - Last Filed: 06/01/20 18:13> - Plan for ED Patient: Disposition: Home or Assisted Living Diagnosis: complex left leg laceration, Presence of stent in coronary artery, Atherosclerotic heart disease of [place] coronary artery without angina pectoris, GERD (gastroesophageal reflux disease) Instructions: ED Laceration Ext Sutr Stap Tape Prescriptions: Cephalexin [Keflex] 500 mg PO TID #15 cap Transmission Status: Pending to [id number] Referrals: Franco Perez MD [Primary Care Provider] - 10-14 Days suture removal
[2020-06-01] MEDS: Cephalexin 250 MG Capsule 500 MG PO (18:33)
[2020-06-01 18:42] VITALS: BP 121/78; PULSE 57; RESP 16
== END 2020-06-01 18:43 | disposition home or self-care (01) ==
PROVIDERS: Emergency Provider Physician Assistant Medical; PCP Internal Medicine
DX: S81.812A Laceration without foreign body, left lower leg, initial encounter (principal); W29.3XXA Contact with powered garden and outdoor hand tools and machinery, initial encounter; Y93.9 Activity, unspecified; Y92.9 Unspecified place or not applicable; Y99.9 Unspecified external cause status; I25.10 Atherosclerotic heart disease of native coronary artery without angina pectoris; I10 Essential (primary) hypertension; E03.9 Hypothyroidism, unspecified; K21.9 Gastro-esophageal reflux disease without esophagitis; F17.200 Nicotine dependence, unspecified, uncomplicated; Z79.82 Long term (current) use of aspirin; Z79.899 Other long term (current) drug therapy; Z95.5 Presence of coronary angioplasty implant and graft
CPT/HCPCS: 12032; 73590; 99284